=== PATIENT | male | born 1930 | race Caucasian/White ===

== ENCOUNTER → 2017-03-25 | Outpatient (CLI) | payer OTHER | PROVIDERS: ATTEND Internal Medicine Gastroenterology | DX: R13.12 Dysphagia, oropharyngeal phase (principal); K21.9 Gastro-esophageal reflux disease without esophagitis; R05 Cough | CPT/HCPCS: 74230; 92611; G8996; G8997; G8998 ==

== ENCOUNTER 2017-07-28 10:22 | Observation (INO) | payer OTHER ==
--- NOTE | 2017-07-28 10:44 | EDPHY ---
H & P Stated Complaint: c/o Rt foot swelling with 2 small blisters -Pt has cough/ congestion Time Seen by Provider: 07/28/17 10:30 HPI/ROS: CHIEF COMPLAINT: Right leg edema HISTORY OF PRESENT ILLNESS: The patient is an 85-year-old man who is a poor historian but according to the medical record has a history of hypertension, chronic bronchitis, pulmonary emboli, DVT, traumatic subarachnoid hemorrhage, valvular heart disease with valve insufficiency, chronic back pain and anemia comes to the emergency department brought by his nephew complaining of bilateral lower extremity edema right greater than left. His at home states that he has had edema in both legs for about a month. He has a small blister to his right dorsal foot and another 1 that is broken to his right lateral foot. No erythema or pain. Patient states he does not now high got them. According to his his right leg was twice is big last night that it is this morning. He has Not had a fever. He has a chronic cough that he states is from chronic congestion. He states that it is not worse than usual. He denies shortness of breath. He denies chest pain REVIEW OF SYSTEMS: Constitutional: denies: chills, fever, recent illness, recent injury EENTM: denies: blurred vision, double vision, nose congestion Respiratory: See HPI denies: shortness of breath Cardiac: denies: chest pain, irregular heart rate, lightheadedness, palpitations Gastrointestinal/Abdominal: denies: abdominal pain, diarrhea, nausea, vomiting, blood streaked stools Genitourinary: denies: dysuria, frequency, hematuria, pain Musculoskeletal: denies: joint pain, muscle pain Skin: See HPI Neurological: denies: headache, numbness, paresthesia, tingling, dizziness, weakness Hematologic/Lymphatic: denies: blood clots, easy bleeding, easy bruising Immunologic/allergic: denies: HIV/AIDS, transplant EXAM: GENERAL: Well-appearing, well-nourished and in no acute distress. HEAD: Atraumatic, normocephalic. EYES: Pupils equal round and reactive to light, extraocular movements intact, sclera anicteric, conjunctiva are normal. ENT: TMs normal, runny nose, oropharynx clear without exudates. Moist mucous membranes. NECK: Normal range of motion, supple without lymphadenopathy or JVD. LUNGS: Upper respiratory rhonchi, no crackles HEART: Regular rate and rhythm without murmurs, rubs or gallops. ABDOMEN: Soft, nontender, normoactive bowel sounds. No guarding, no rebound. No masses appreciated. BACK: No CVA tenderness, no spinal tenderness, step-offs or deformities EXTREMITIES: 2+ pitting edema both legs right greater than left, NEUROLOGICAL: Cranial nerves II through XII grossly intact. Normal speech, normal gait. 5/5 strength, normal movement in all extremities, normal sensation PSYCH: Normal mood, normal affect. SKIN: Small blister on broken to right dorsal foot. Small broken blister to the lateral aspect of the right foot. Minimal bout of blood present. No sign of erythema or warmth. Source: Patient Exam Limitations: No limitations - Personal History Current Tetanus Diphtheria and Acellular Pertussis (TDAP): Unsure - Medical/Surgical History Hx Asthma: No Hx Chronic Respiratory Disease: No Hx Diabetes: No Hx Cardiac Disease: No Hx Renal Disease: No Hx Cirrhosis: No Hx Alcoholism: No Hx HIV/AIDS: No Hx Splenectomy or Spleen Trauma: No Other PMH: Hypertension, chronic bronchitis, PE, DVT, traumatic subarachnoid, valvular heart disease, chronic back pain, bilateral cataract surgery, appendectomy, chronic anemia, chronic dysphagia post stricture dilation, GERD, and epistaxis, arthritis, gout - Family History Significant Family History: No pertinent family hx - Social History Smoking Status: Never smoked Alcohol Use: Sober Drug Use: None Constitutional: Initial Vital Signs Temperature (C) 36.6 C 07/28/17 10:38 Heart Rate 84 07/28/17 10:38 Respiratory Rate 18 07/28/17 10:38 Blood Pressure 134/62 H 07/28/17 10:38 O2 Sat (%) 92 07/28/17 10:38 O2 Delivery Mode Room Air Allergies/Adverse Reactions: ampicillin [Ampicillin] Allergy (Intermediate, Verified 11/26/15 11:12) Penicillins Allergy (Intermediate, Verified 11/26/15 11:12) Home Medications: Medication Instructions Recorded Warfarin Sodium [Coumadin] 5 mg PO DAILY16 03/17/11 CENTRUM SILVER TABLET 04/13/11 Vitamin B-12 04/13/11 Citalopram 10/04/15 Nadolol 10/04/15 Medical Decision Making - Diagnostics EKG Interpretation: An EKG obtained and was read and documented in trace view. Please see trace view for full reading and report. Wandering pacemaker, LVH with repolarization abnormality Imaging Results: Imaging Impressions Extremity Venous Study 07/28/17 10:41 Impression: 1. Small volume bilateral deep venous thrombosis involving the peroneal veins. No deep venous thrombosis within the popliteal or femoral veins. 2. Age indeterminate thrombophlebitis involving the right greater saphenous vein in the calf. Findings discussed with Emergency Department physician, Mehran Rivera at 2016 12:30. Imaging: Discussed imaging studies w/ call center recruiter Radiologist ED Course/Re-evaluation: 11:40 a.m. we discussed test results thus far. Patient and family are agreeable to admission. I will start him on Lasix small dose. He is not you have to Lasix. INR is pending. I discussed the case with Laverne who accepted for Dr. Collazo. Radiology reports that there are multiple chronic appearing DVTs in bilateral legs but I small acute DVT in his right popliteal region. I will start the patient on Lovenox prior to transfer. Differential Diagnosis: Partial list of the Differential diagnosis considered include but were not limited to; CHF, valvular heart disease, DVT, cellulitis and although unlikely based on the history and physical exam, I also considered thrombosis, fracture, pneumonia. I discussed these differential diagnoses and the plan with the patient as well as the usual and expected course. The patient understands that the diagnosis is provisional and that in medicine we are not always correct and that further workup is often warranted. Usual and customary warnings were given. All of the patient's questions were answered. The patient was instructed to return to the emergency department should the symptoms at all worsen or return, otherwise to followup with the physician as we discussed. - Data Points Laboratory Results: Laboratory Results 07/28/17 10:49 07/28/17 10:49 07/28/17 07/28/17 07/28/17 10:49 10:49 10:49 WBC 8.07 10^3/uL 10^3/uL (3.80-9.50) RBC 3.56 10^6/uL L 10^6/uL (4.40-6.38) Hgb 11.2 g/dL L g/dL (13.7-17.5) Hct 33.9 % L % (40.0-51.0) MCV 95.2 fL fL (81.5-99.8) MCH 31.5 pg pg (27.9-34.1) MCHC 33.0 g/dL g/dL (32.4-36.7) RDW 13.9 % % (11.5-15.2) Plt Count 152 10^3/uL 10^3/uL (150-400) MPV 10.0 fL fL (8.7-11.7) Neut % (Auto) 56.3 % % (39.3-74.2) Lymph % (Auto) 36.6 % % (15.0-45.0) Vance % (Auto) 5.3 % % (4.5-13.0) Eos % (Auto) 1.0 % % (0.6-7.6) Baso % (Auto) 0.4 % % (0.3-1.7) Nucleat RBC Rel Count 0.0 % % (0.0-0.2) Absolute Neuts (auto) 4.55 10^3/uL 10^3/uL (1.70-6.50) Absolute Lymphs (auto) 2.95 10^3/uL 10^3/uL (1.00-3.00) Absolute Monos (auto) 0.43 10^3/uL 10^3/uL (0.30-0.80) Absolute Eos (auto) 0.08 10^3/uL 10^3/uL (0.03-0.40) Absolute Basos (auto) 0.03 10^3/uL 10^3/uL (0.02-0.10) Absolute Nucleated RBC 0.00 10^3/uL 10^3/uL (0-0.01) Immature Gran % 0.4 % % (0.0-1.1) Immature Gran # 0.03 10^3/uL 10^3/uL (0.00-0.10) PT 25.4 SEC H SEC (12.0-15.0) INR 2.33 H (0.83-1.16) APTT 39.8 SEC H SEC (23.0-38.0) Sodium 140 mEq/L mEq/L (134-144) Potassium 4.2 mEq/L mEq/L (3.5-5.2) Chloride 104 mEq/L mEq/L (97-110) Carbon Dioxide 28 mEq/l mEq/l (22-31) Anion Gap 8 mEq/L mEq/L (8-16) BUN 18 mg/dL mg/dL (7-23) Creatinine 0.9 mg/dL mg/dL (0.7-1.3) Estimated GFR > 60 Glucose 102 mg/dL H mg/dL (70-100) Calcium 8.8 mg/dL mg/dL (8.5-10.4) Total Bilirubin 0.9 mg/dL mg/dL (0.1-1.4) Conjugated Bilirubin 0.4 mg/dL mg/dL (0.0-0.5) Unconjugated Bilirubin 0.5 mg/dL mg/dL (0.0-1.1) AST 38 IU/L IU/L (17-59) ALT 48 IU/L IU/L (21-72) Alkaline Phosphatase 93 IU/L IU/L (38-126) Troponin I < 0.012 ng/mL ng/mL (0.000-0.034) NT-Pro-B Natriuret Pep 4460 pg/mL H pg/mL (0-450) Total Protein 6.9 g/dL g/dL (6.3-8.2) Albumin 2.9 g/dL L g/dL (3.5-5.0) Lipase 194 IU/L IU/L (23-300) Medications Given: Enoxaparin Sodium (Lovenox) 80 mg SC BID MELINA Stop: 01/24/18 12:29 Last Admin: 07/28/17 12:49 Dose: 80 mg Discontinued Medications Furosemide (Lasix Injection) 20 mg IVP EDNOW ONE Stop: 07/28/17 11:40 Last Admin: 07/28/17 12:01 Dose: 20 mg Departure - Departure Disposition: [facility] Clinical Impression: Bilateral edema of lower extremity CHF (congestive heart failure) Qualifiers: Congestive heart failure type: unspecified congestive heart failure type Congestive heart failure chronicity: unspecified congestive heart failure chronicity Qualified Code(s): I50.9 - Heart failure, unspecified Condition: Fair
[2017-07-28 10:59] LABS: % IMMATURE GRANULYOCYTES 0.4 % (0.0-1.1); ABSOLUTE IMMATURE GRANULOCYTES 0.03 10^3/uL (0.00-0.10); ADD DIFF? NO; ADD MORPH? NO; ADD SCAN? NO; ATYPICAL LYMPHOCYTE FLAG 10 (0-99); FRAGMENT RBC FLAG 0 (0-99); HEMATOCRIT 33.9 % (40.0-51.0); HEMOGLOBIN 11.2 g/dL (13.7-17.5); LEFT SHIFT FLG 0 (0-99); LIPEMIA HEMOLYSIS FLAG 80 (0-99); MEAN CELL HEMOGLOBIN 31.5 pg (27.9-34.1); MEAN CELL VOLUME 95.2 fL (81.5-99.8); PLATELET CLUMPS FLAG 0 (0-99); PLATELET COUNT 152 10^3/uL (150-400); RED BLOOD CELL COUNT 3.56 10^6/uL (4.40-6.38); RED CELL DISTRIBUTION WIDTH 13.9 % (11.5-15.2)
--- NOTE | 2017-07-28 11:02 | CPEKG ---
Heart Rate: 65 RR Interval: 923 P-R Interval: 187 QRSD Interval: 128 QT Interval: 488 QTC Interval: 508 P Middleton: 0 QRS Middleton: -65 T Wave Middleton: 19 EKG Severity - ABNORMAL ECG - EKG Impression: WANDERING PACEMAKER EKG Impression: PAIRED VENTRICULAR PREMATURE COMPLEXES EKG Impression: RBBB AND LAFB EKG Impression: CONSIDER ANTEROSEPTAL INFARCT Electronically Signed By: Mehran Rivera 28-Jul-2017 11:25:36
[2017-07-28 11:18] LABS: ALANINE AMINOTRANSFERASE 48 IU/L (21-72); ALBUMIN 2.9 g/dL (3.5-5.0); ALKALINE PHOSPHATASE 93 IU/L (38-126); ANION GAP 8 mEq/L (8-16); ASPARTATE AMINOTRANSFERASE 38 IU/L (17-59); BILIRUBIN,TOTAL 0.9 mg/dL (0.1-1.4); BILIRUBIN-CONJUGATED 0.4 mg/dL (0.0-0.5); BILIRUBIN-UNCONJUGATED 0.5 mg/dL (0.0-1.1); CALCIUM 8.8 mg/dL (8.5-10.4); CARBON DIOXIDE 28 mEq/l (22-31); CHLORIDE 104 mEq/L (97-110); CREATININE 0.9 mg/dL (0.7-1.3); GLOMERULAR FILTRATION RATE > 60; GLUCOSE 102 mg/dL (70-100); POTASSIUM 4.2 mEq/L (3.5-5.2); SODIUM 140 mEq/L (134-144); TOTAL PROTEIN 6.9 g/dL (6.3-8.2)
[2017-07-28 11:28] LABS: TROPONIN I < 0.012 ng/mL (0.000-0.034)
[2017-07-28] MEDS ORDERED: FUROSEMIDE 20 MG/2 ML VIAL IVP ONE (11:39)
[2017-07-28 12:05] LABS: INR 2.33 (0.83-1.16); PROTIME(PATIENT) 25.4 SEC (12.0-15.0)
[2017-07-28 12:06] LABS: APTT 39.8 SEC (23.0-38.0)
[2017-07-28] MEDS ORDERED: ENOXAPARIN 80 MG/0.8 ML SYR SC ONE ×2 (12:25→14:00)
[2017-07-28] MEDS ORDERED: ENOXAPARIN 80 MG/0.8 ML SYR SC SCH ×2 (12:30→21:00)
[2017-07-28] MEDS ORDERED: ONDANSETRON DISINTEGRATING 4 MG TAB PO PRN (13:47)
[2017-07-28] MEDS ORDERED: ACETAMINOPHEN 325 MG TAB PO PRN (13:47)
[2017-07-28] MEDS ORDERED: ONDANSETRON 4 MG/2 ML VIAL IVP PRN (13:47)
[2017-07-28] MEDS ORDERED: ECONAZOLE 1% CREAM TP PRN (14:33)
--- NOTE | 2017-07-28 15:00 | WOCRNPDOC ---
WOCRN Advanced Assessment Note - Skin Integrity Problem, Advanced Assess Coccyx Pressure Injury Dressing Type: Open to Air, Other Other Dressing Type: briefs Exudate Amount: None Kiana Wound Tissue: Erythema, Non-blanching Wound Bed Color: Red Site Measurement - Head-to-Toe Length X Width X Depth (cm): 4.2x3.2x0 Pressure Injury Stage: Stage 1 Pressure Injury Present on Admit: Yes Skin Integrity Problem Comment: Patient rolled to his right side and briefs lowered to view the area. Skin over coccyx is dark red and non-blanching. Skin on the upper gluteal cleft also with redness but this area is blanching. With permission, I removed the patient's briefs and recommend that he remain brief free while in bed. This wound is consistent with a Stage 1 pressure injury, present on admission. Patient and family educated about how pressure injuries develop and what measures can be taken to help prevent them. All questions answered. Wound care will not follow this wound. Please reconsult PRN if wound opens.
--- NOTE | 2017-07-28 15:16 | GHP ---
[f rep st] HISTORY AND PHYSICAL DATE OF ADMISSION: 07/28/2017 CHIEF COMPLAINT: Lower extremity swelling. HISTORY OF PRESENT ILLNESS: An 86-year-old male with history of DVT in 2008 and pulmonary embolism, hypertension, depression, anemia, brought in by and daughter due to swelling, specifically in the right leg, as well as sores on his foot. The swelling in the legs started approximately on Friday, noted more on the right side. Has intermittent swelling of the ankles. He denies any chest pain, shortness of breath, nausea, vomiting, diarrhea. No fevers. Uses a walker but has had 6 falls in the last year, per family. REVIEW OF SYSTEMS: I completed a 10-point review of systems, negative except as noted in HPI. PAST MEDICAL HISTORY: 1. DVT, 2008. 2. Pulmonary embolism. 3. Hypertension. 4. Bronchitis. 5. Depression. 6. MGUS. 7. Chronic back pain. 8. GERD. 9. History of temporal SAH. 10. Anemia. 11. Esophageal stricture, status post dilation. PAST SURGICAL HISTORY: Cataract, appendectomy. 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 Lives with his in [place]. Has been 66 years. Smoked a pack a day for 30 years, quit 30 years ago. FAMILY HISTORY: His father of a CVA. Mother of stomach cancer. HOME MEDICATIONS: 1. Nadolol 160 mg daily. 2. Omeprazole 40 mg daily. 3. Multivitamin. 4. Miconazole cream. 5. Celexa 20 mg daily. 6. Coumadin 5 mg. ALLERGIES: Ampicillin, penicillin. PHYSICAL EXAMINATION: VITAL SIGNS: Temperature 36.6, blood pressure 134/60, heart rate 80s, respirations 18. 98% on room air. GENERAL: Well appearing, sitting up in bed. No acute distress. HEENT: PERRLA. EOMI. Oropharynx clear. CV: Regular rate, rhythm. No murmurs, gallops, or rubs. +2 ankle edema on the left, +2 up to the knee on the right. No overlying erythema. : No suprapubic tenderness. MUSCULOSKELETAL: Moving all 4 extremities. SKIN: 2 wounds on the right foot. No surrounding cellulitis. NEURO: 2 through 12 intact. PSYCH: Alert and oriented x3. LABS: WBC is 8, hemoglobin 11, hematocrit 33, platelets 152. INR is 2.2. Sodium 140, potassium 4.2, chloride 104, anion gap 8, creatinine 0.9, glucose 102. LFTs within normal. Troponin less than 0.012. BNP 4460. Albumin 2.9, lipase 194. EKG personally reviewed by me: Right bundle branch block. Chest x-ray personally reviewed: 1. Blunting of the left costophrenic angle. 2. Right upper lobe nodule. ASSESSMENT AND PLAN: 1. Lower extremity edema: Suspect on the right, secondary to blood clots. It is unclear the chronicity of these. Reviewed with Dr. Issa, difficult to discern, but peroneal fullness likely represents new clot. I reviewed records and INR <2 several times this years, so cannot consider coumadin failure, but given fluctuating INR, Eliquis may be better agent. Family to decide this evening. Place on Lovenox BID for now. time. BNP is elevated, TTE pending. 2. Depression: Celexa. 3. Pulmonary nodule: This is new on x-ray. I reviewed this with family and they do not want to pursue any further. 4. Gastroesophageal reflux disease: Proton pump inhibitor. 5. Hypertension: Continue nadolol. 6. Diet: Low-sodium. 7. Deep venous thrombosis prophylaxis: On Lovenox. 8. Disposition: The patient warrants observation admission, given lower extremity edema requiring an echocardiogram, telemetry. 9. Code status: I d/w patient and family and agree with DNR. /[id number]/MODL Time spent on admission: 75 min reviewing records, d/w with Dr. Issa and anticoagulation options with family MTDD
--- NOTE | 2017-07-28 16:31 | ECHO ---
[email or web address] [address] Main: [phone] Fax: Transthoracic Echocardiogram Name: CATARINO STRICKLAND MR#: [id number] Study Date: 07/28/2017 Study Time: 02:52 PM Date of : 1930 Age: 86 year(s) Height: 175.3 cm (69 in.) Weight: 56.25 kg (124 lb.) BSA: 1.69 m2 Gender: Male Examination: Echo Indication: Lower extremity edema, Murmur, Pectus Carinatum Image Quality: Contrast: Requested by: Ambreen Collazo BP: 118 mmHg/53 mmHg Heart Rate: Rhythm: Normal sinus rhythm Indication: Lower extremity edema, Murmur, Pectus Carinatum Procedure Staff Plating Stripper: Cem Avilez Reading Physician: Hugo Herndon Requesting Provider: Conclusions: Low normal left ventricular systolic function. EF is 56 %. Severe calcific aortic valve stenosis. The Ao Vmax 4.1 m/s with a Ao mean Pg of 40 mmHg. The dimentionless index is .12 Technically difficult exam with limited windows due to pectus carinatum. Severe . There is no previous echocardiogram for comparison. Measurements: Chambers Valvular Assessment AV/MV Valvular Assessment TV/PV Normal Normal Normal Name Value Range Name Value Range Name Value Range Ao Letha (MM): 1.6 cm (2.2 cm-3.7 AV Vmax: 4.17 m/s (1 m/s-1.7 cm) m/s) IVSd (2D): 1.0 cm (0.6 cm-1.1 AV maxP mmHg ( - ) cm) AV meanP mmHg ( - ) LVDd (2D): 4.1 cm (4.2 cm-5.9 IRENE (VTI): 0.4 cm ( - ) cm) MV E Vmax: 0.82 m/s ( - ) LVDs (2D): 2.9 cm (2.1 cm-4 MV A Vmax: 0.59 m/s ( - ) cm) MV E/A: 1.39 ( - ) LVPWd (2D): 1.2 cm (0.6 cm-1 cm) MV meanP mmHg ( - ) LVOTd 1.9 cm 1.9 cm mm MVA (Vmax): 1.1 m/s ( - ) LVEF (2D): 56 (>=54 %) Continued Measurements: Chambers Valvular Assessment AV/MV Name Value Name Value LADs Lon.6 cm MV E' Septal: 0.04 m/s Patient: CATARINO STRICKLAND Study Date: 07/28/2017 Page 1 of 2 02:52 PM LA Area: 20.4 cm2 MV E/E' Septal: 23.30 MV E/E' Lateral: 15.30 MV VTI: 38.90 cm Findings: Left Ventricle: Normal size left ventricle. Low normal left ventricular systolic function. EF is 56 %. No regional wall motion abnormality. Diastolic dysfunction is present. . Right Ventricle: Normal size right ventricle. Normal RV function. Left Atrium: The left atrium is mildly dilated. Right Atrium: The right atrium is normal in size. Mitral Valve: Mild mitral valve leaflet calcification is present. No mitral stenosis is present. Aortic Valve: Severe aortic valve calcification is present. Severe calcific aortic valve stenosis. The Ao Vmax 4.1 m/s with a Ao mean Pg of 40 mmHg. The dimentionless index is .12 Tricuspid Valve: Tricuspid valve not well visualized. Pulmonic Valve: Pulmonary valve not well visualized. Aorta: The aorta is normal. Pericardium: No pericardial effusion. Exam Comments: Technically difficult exam with limited windows due to pectus carinatum. Severe . (No Signature Object) Patient: CATARINO STRICKLAND Study Date: 07/28/2017 Page 2 of 2 02:52 PM [id number]
[2017-07-28 19:12] LABS: COLOR YELLOW; LEUKOCYTE ESTERASE,URINE NEGATIVE (NEGATIVE); NITRITE,URINE NEGATIVE (NEGATIVE)
[2017-07-28] MEDS ORDERED: ENOXAPARIN 60 MG/0.6 ML SYR SC SCH (21:00)
[2017-07-29 04:54] VITALS: RESP 16
[2017-07-29 05:17] LABS: HEMOGLOBIN 10.4 g/dL (13.7-17.5); MEAN CELL HEMOGLOBIN 31.7 pg (27.9-34.1); MEAN CELL HEMOGLOBIN CONCENTR. 33.5 g/dL (32.4-36.7); MEAN CELL VOLUME 94.5 fL (81.5-99.8); RED BLOOD CELL COUNT 3.28 10^6/uL (4.40-6.38); RED CELL DISTRIBUTION WIDTH 13.7 % (11.5-15.2)
[2017-07-29 05:22] LABS: INR 2.78 (0.83-1.16); PROTIME(PATIENT) 29.7 SEC (12.0-15.0)
[2017-07-29 05:26] LABS: ANION GAP 7 mEq/L (8-16); CALCIUM 8.2 mg/dL (8.5-10.4); CARBON DIOXIDE 26 mEq/l (22-31); CHLORIDE 105 mEq/L (97-110); CREATININE 0.8 mg/dL (0.7-1.3); GLOMERULAR FILTRATION RATE > 60; GLUCOSE 75 mg/dL (70-100); POTASSIUM 4.1 mEq/L (3.5-5.2); SODIUM 138 mEq/L (134-144)
--- NOTE | 2017-07-29 08:06 | HOSPPROG ---
Hospitalist Progress Note Assessment/Plan: #LE edema: R>L. Likely due to clot. No pain #h/o DVT/PE: INR variable at home. Family and patient opting for Eliquis. INR 2.7 today. Provided Rx for Eliquis and arranged home valentina RN to check daily INR and can start when INR less than 2 #Asymptomatic severe : patient and family don't want intervention. Mild edema here. Will hold BB since BP running low at home. Will have them see Cardiology outpatient #Other chronic medical issues: stable and resume home meds Time spent on dc: 60 min counseling family on medications, home care and d/w pharmacy Subjective: no chest pain or shortness of breath Objective: Vital Signs Temp Pulse Resp BP Pulse Ox 36.7 C 57 L 16 113/52 L 90 L 07/29/17 04:00 07/29/17 04:00 07/29/17 04:00 07/29/17 04:00 07/29/17 04:00 Laboratory Results 07/29/17 03:50 07/29/17 03:50 07/28/17 07/29/17 07/30/17 05:59 05:59 05:59 Intake Total 550 Output Total 300 Balance 250 PT 29.7 SEC (12.0-15.0) H 07/29/17 03:50 INR 2.78 (0.83-1.16) H 07/29/17 03:50 - Physical Exam Constitutional: no apparent distress Eyes: PERRL Ears, Nose, Mouth, Throat: moist mucous membranes, hearing normal Cardiovascular: regular rate and rhythym, no murmur, rub, or gallop, edema (+2 LE right, +1 left) Respiratory: no respiratory distress, no rales or rhonchi Gastrointestinal: normoactive bowel sounds Genitourinary: no bladder fullness Skin: warm Musculoskeletal: full muscle strength Neurologic: AAOx3, CN II-XII Intact Psychiatric: interacting appropriately ICD10 Worksheet Patient Problems: Problems Problem Status Onset Bilateral edema of lower extremity Acute CHF (congestive heart failure) Acute
[2017-07-29] MEDS ORDERED: NADOLOL 20 MG TAB PO SCH (09:00)
[2017-07-29] MEDS ORDERED: NADOLOL PO SCH (09:00)
[2017-07-29] MEDS ORDERED: NON-FORMULARY NEW DRUG (Omeprazole [Omeprazole] 40 MG) PO SCH (09:00)
[2017-07-29] MEDS ORDERED: MULTIVITAMINS 1 EACH TAB PO SCH (09:00)
[2017-07-29] MEDS ORDERED: PANTOPRAZOLE SODIUM 40 MG TAB PO SCH (09:00)
[2017-07-29] MEDS ORDERED: CITALOPRAM 20 MG TAB PO SCH (09:00)
[2017-07-29] MEDS ORDERED: APIXABAN 5 MG TAB PO SCH (09:15)
--- NOTE | 2017-07-29 11:37 | PDIAF ---
- Diagnosis Diagnosis: DVT, aortic stenosis Code Status: Do Not Resuscitate - Medication Management Discharge Medications: Medications to Continue on Transfer Citalopram [CeleXA 20 MG] 20 mg PO DAILY 07/28/17 [Last Taken 07/28/17] Econazole 1% [Spectazole 1%] 1 obinna TP BID PRN 07/28/17 [Last Taken Unknown] Multivitamins [Multivitamin (*)] 1 each PO DAILY 07/28/17 [Last Taken 07/28/17] Omeprazole 40 mg PO DAILY 07/28/17 [Last Taken 07/28/17] Apixaban [Eliquis] 5 mg PO BID #60 tab 07/29/17 [Last Taken Unknown] Discharge Medications: Refer to the Discharge Home Medication list for PRN reason. - Orders Services needed: Registered Nurse Diet Recommendation: cardiac -low fat low salt - Labs/Radiology PT/INR Date: 07/31/17 (need daily INR checks. Once INR < 2, can start Eliquis) - Follow Up Care Current Providers and Referrals: Jadiel Harding MD [Medical Doctor] - follow up in 2 weeks (Aortic stenosis)
[2017-07-29 11:40] VITALS: BP 126/60; PULSE 56; TEMP 97.5; O2SAT 92
--- NOTE | 2017-07-29 12:26 | ASMTCMCOM ---
CM Note CM Note Notes: 07/29/2017 Case Managment Note Met w/ pt, and daughter Jerad. Arranged home supervisor for INR draws. Pt was previously with [facility]. Family requested [facility]. Faxed referral and called to confirm. Family to transport home. Date Signed: 07/29/2017 12:26 PM Electronically Signed By:Kaylan Moore RN
--- NOTE | 2017-07-29 12:27 | ASDISCHSUM ---
Discharge Information Plan Status:Home with Home Health Medically Cleared to Leave:07/28/2017 Discharge Date:07/29/2017 12:19 PM D/C Disposition:Home Health Service ADT D/C Disposition:Home, Routine, Self-Care Projected Discharge Date:07/29/2017 11:00 AM Transportation at D/C:Family Discharge Delay Reason: Follow-Up Date:07/29/2017 11:00 AM Discharge Slot: Final Diagnosis: Placement Information Referral Type:*Home Health Care Services Referral ID:[id number] Provider [facility] [address] [facility] [address] Address 2: City:[place] Selection Factors: State:[place] Patient Contact Information Contact Name:SCOTTPOOLRicky Relationship: Address:[address] Work Phone: [facility]:[place] Alternate Phone: State/Zip Code:[place] [address] Email: Financial Information Financial Class:Medicare Advantage Plans Primary Plan Desc:[facility] Primary Plan Number:[id number] Secondary Plan Desc: Secondary Plan Number: Assessment Information [facility] CM Progress Note CM Note CM Note Notes: 07/29/2017 Case Managment Note Met w/ pt, and daughter Jerad. Arranged home health manager for INR draws. Pt was previously with [facility]. Family requested [facility]. Faxed referral and called to confirm. Family to transport home. Date Signed: 07/29/2017 12:26 PM Electronically Signed By:Kaylan Moore RN Intervention Information Intervention Type:*Incorrect Registration Date of Service:07/28/2017 03:28 PM Patient Type:Observation Staff Member:ALVARO Alexander, Marley Hours: Discipline: Severity: Comment: Intervention Type:*DAWN-Signed Date of Service:07/29/2017 09:32 AM Patient Type:Observation Staff Member:Ne Harris Hours: Discipline: Severity: Comment:
--- NOTE | 2017-07-29 16:37 | GDS ---
[f rep st] DISCHARGE SUMMARY DISCHARGE DIAGNOSES: 1. Lower extremity swelling. 2. Deep vein thrombosis 2008. 3. Pulmonary embolism. 4. Questionable new right peroneal deep vein thrombosis. 5. Bronchitis. 6. Depression. 7. Monoclonal gammopathy of undetermined significance. 8. Chronic back pain. 9. Gastroesophageal reflux disease. 10. History of temporal FSH. 11. Anemia. 12. Esophageal stricture. 13. History of falls. 14. Severe aortic stenosis. HISTORY OF PRESENT ILLNESS: An 86-year-old male with history of DVT in 2008 and pulmonary embolism, hypertension, abdomen depression, brought in by and daughter due to swelling in his legs as well as some sores on his feet. The legs started swelling on Friday. They noted that it was more on the right than left. He denies any pain in the legs. No chest pain or shortness of breath. No dizziness or lightheadedness. No syncopal episodes. No fevers. HOSPITAL COURSE BY PROBLEM: 1. Lower extremity edema: due to the peroneal clots, mild volume overload. Reviewed imaging with Dr. Issa who stated it was difficult to discern, but there was fullness in the vein, so could represent new clot. He is currently on Coumadin, but I would not consider this a failure, as I reviewed INRs in the past that have been subtherapeutic. Per family, is very difficult to keep it at the goal of 2. I had a lengthy discussion with patient's daughter and , and they have chosen Eliquis for better control. His INR is currently 2.7, thus cannot start until this is less than 2. I have arranged for home health nurse to check his INR daily and he may start this once less than 2. Will start Eliquis at 5 mg b.i.d. Since clots are in the distal peroneal veins, it is reasonable to not consider these needing acute clot treatment dose. Will treat only with 5 mg b.i.d. with fall risk. This was discussed with family, and they are in agreement. 2. Echocardiogram showed low LV function, EF of 56%. There is severe calcific aortic valve stenosis with an AOV max of 4.1 m/s, with an AO mean gradient of 40 mmHg. This is considered severe . There was no prior with which to compare. Patient denies since syncope, presyncope, chest pain, and shortness of breath. He did have mild edema on exam, minimal pulmonary edema. He was dosed with Lasix once in the emergency room. Given age and not requiring oxygen , I will not send home on a diuretic. He is currently on nadolol for blood pressure control; however, family states his blood pressures range anywhere from systolic 90s to 110s. I would rather see him run a little on the high side with the severe , so we will stop this medication. Will arrange for him to follow up with Cardiology to discuss treatment options. At this time, patient's family would not like any intervention. 3. Right foot wounds, secondary to swelling: No evidence of infection. Wound care evaluated. 4. Other chronic issues: Patient may resume his home medications. DISPOSITION: Patient is stable for discharge home with his and daughter. NEW MEDICATIONS: Eliquis 5 mg twice daily to start when INR is less than 2. FOLLOWUP: 1. Make appointment with Cardiology to discuss aortic stenosis. 2. INR via home health nurse. 3. Followup with PCP. Time spent on DC. 50 min coordinating anticoagulation, counseling family on anticoagulation and coordinating home care. /[id number]/MODL MTDD
== END 2017-07-29 12:19 | disposition home or self-care (01) ==
LOC: CED 10:22 → CEDHOLD 11:44 → F2W 13:30
PROVIDERS: ADMIT Internal Medicine; ATTEND Internal Medicine
DX: R60.0 Localized edema (principal); I26.99 Other pulmonary embolism without acute cor pulmonale; J40 Bronchitis, not specified as acute or chronic; D47.2 Monoclonal gammopathy; M54.9 Dorsalgia, unspecified; K21.9 Gastro-esophageal reflux disease without esophagitis; D64.9 Anemia, unspecified; K22.2 Esophageal obstruction; Q25.1 Coarctation of aorta; Z91.81 History of falling; Z86.718 Personal history of other venous thrombosis and embolism; Z95.0 Presence of cardiac pacemaker
CPT/HCPCS: 71010; 93005; 93306; 93970; 97161; G0378; G8978; G8979; G8980; J1650; J1940; 80048-PO; 80076-PO; 83690-PO; 83880-PO; 84484-PO; 85025-PO; 85610-PO; 85730-PO; 96374

== ENCOUNTER → 2017-09-29 | Outpatient (CLI) | payer OTHER | PROVIDERS: ATTEND Internal Medicine | DX: R13.13 Dysphagia, pharyngeal phase (principal); K21.9 Gastro-esophageal reflux disease without esophagitis | CPT/HCPCS: 74230; 92611; G8996; G8997; G8998 ==

== ENCOUNTER 2017-12-04 19:21 | Inpatient (IN) | payer OTHER ==
--- NOTE | 2017-12-04 19:51 | EDPHY ---
H & P Stated Complaint: Fever after dinner at 1700hrs, as aspiration issues. Time Seen by Provider: 12/04/17 19:36 HPI/ROS: Chief Complaint: Fever HPI: 87-year-old male with a history of a swallowing dysmotility disorder had a fever of 101.3 at home. Patient has a history of aspiration in family is concerned he may have aspirated. Patient had a small choking episode at dinner about 2.5 hr ago. Has a chronic mild cough, usually associated with eating. No shortness of breath. No nausea or vomiting. No urinary urgency or frequency. No chest pain. No abdominal pain.. No skin rashes. No headache. Otherwise has been in his usual state health. ROS: 10 point Review of Systems is negative except as noted in the HPI. Social History: No smoking, no alcohol, no recreational drug use Family History: non-contributory Physical Exam: Gen: Awake, Alert, No Distress HEENT: Nose: no rhinorrhea Eyes: PERRLA, EOMI Mouth: Moist mucosa Neck: Supple, no JVD Chest: nontender, lungs clear to auscultation Heart: S1, S2 normal, 4/6 blowing systolic murmur Abd: Soft, non-tender, no guarding Back: no CVA tenderness, no midline tenderness Ext: no edema, non-tender Skin: no rash Neuro: CN II-XII intact, Sensation grossly intact, Strength 5/5 in bilateral upper and lower extremities - Personal History Current Tetanus/Diphtheria Vaccine: Unsure Current Tetanus Diphtheria and Acellular Pertussis (TDAP): Unsure - Medical/Surgical History Hx Asthma: No Hx Chronic Respiratory Disease: Yes Hx Diabetes: No Hx Cardiac Disease: Yes Hx Renal Disease: No Hx Cirrhosis: No Hx Alcoholism: No Hx HIV/AIDS: No Hx Splenectomy or Spleen Trauma: No Other PMH: Hypertension, chronic bronchitis, PE, DVT, traumatic subarachnoid, valvular heart disease, chronic back pain, bilateral cataract surgery, appendectomy, chronic anemia, chronic dysphagia post stricture dilation, GERD, and epistaxis, arthritis, gout. - Social History Smoking Status: Never smoked Constitutional: Initial Vital Signs Temperature (C) 37.7 C 12/04/17 19:37 Heart Rate 108 H 12/04/17 19:37 Respiratory Rate 16 12/04/17 19:37 Blood Pressure 136/89 H 12/04/17 19:37 O2 Sat (%) 91 L 12/04/17 19:37 O2 Delivery Mode Room Air Allergies/Adverse Reactions: ampicillin [Ampicillin] Allergy (Intermediate, Verified 11/26/15 11:12) Penicillins Allergy (Intermediate, Verified 11/26/15 11:12) Home Medications: Medication Instructions Recorded Citalopram [CeleXA 20 MG] 20 mg PO DAILY 07/28/17 Econazole 1% [Spectazole 1%] 1 obinna TP BID PRN 07/28/17 Multivitamins [Multivitamin (*)] 1 each PO DAILY 07/28/17 Omeprazole 40 mg PO DAILY 07/28/17 Apixaban [Eliquis] 5 mg PO BID #60 tab 07/29/17 Medical Decision Making - Diagnostics Imaging Results: Imaging Impressions Chest X-Ray 12/04/17 19:45 Impression: 1. Patchy right lower lobe pneumonia 2. New since 2008 and moderate T7 and T8 compressions. This patient might benefit from a DEXA scan. ED Course/Re-evaluation: Chest x-ray shows a patchy right lower lobe infiltrate. Patient is tachycardic. Awaiting CBC results. Patient will likely require admission given his comorbidities and likely aspiration pneumonia. CBC is normal. Patient mildly tachycardic amount of hypoxemic. Clindamycin has been ordered as the patient is penicillin allergic. Will be admitted to Dr. Chahal for IV antibiotics and observation overnight. - Data Points Laboratory Results: Laboratory Results 12/04/17 20:20 12/04/17 20:20 12/04/17 12/04/17 12/04/17 20:20 20:20 20:20 WBC 7.38 10^3/uL 10^3/uL (3.80-9.50) RBC 3.42 10^6/uL L 10^6/uL (4.40-6.38) Hgb 10.9 g/dL L g/dL (13.7-17.5) Hct 33.1 % L % (40.0-51.0) MCV 96.8 fL fL (81.5-99.8) MCH 31.9 pg pg (27.9-34.1) MCHC 32.9 g/dL g/dL (32.4-36.7) RDW 13.1 % % (11.5-15.2) Plt Count 144 10^3/uL L 10^3/uL (150-400) MPV 10.4 fL fL (8.7-11.7) Neut % (Auto) 81.4 % H % (39.3-74.2) Lymph % (Auto) 13.3 % L % (15.0-45.0) Louisa % (Auto) 4.2 % L % (4.5-13.0) Eos % (Auto) 0.5 % L % (0.6-7.6) Baso % (Auto) 0.3 % % (0.3-1.7) Nucleat RBC Rel Count 0.0 % % (0.0-0.2) Absolute Neuts (auto) 6.01 10^3/uL 10^3/uL (1.70-6.50) Absolute Lymphs (auto) 0.98 10^3/uL L 10^3/uL (1.00-3.00) Absolute Monos (auto) 0.31 10^3/uL 10^3/uL (0.30-0.80) Absolute Eos (auto) 0.04 10^3/uL 10^3/uL (0.03-0.40) Absolute Basos (auto) 0.02 10^3/uL 10^3/uL (0.02-0.10) Absolute Nucleated RBC 0.00 10^3/uL 10^3/uL (0-0.01) Immature Gran % 0.3 % % (0.0-1.1) Immature Gran # 0.02 10^3/uL 10^3/uL (0.00-0.10) VBG Lactic Acid 1.8 mmol/L mmol/L (0.7-2.1) Sodium 136 mEq/L mEq/L (135-145) Potassium 4.3 mEq/L mEq/L (3.5-5.2) Chloride 100 mEq/L mEq/L (97-110) Carbon Dioxide 27 mEq/l mEq/l (22-31) Anion Gap 9 mEq/L mEq/L (8-16) BUN 23 mg/dL mg/dL (7-23) Creatinine 1.0 mg/dL mg/dL (0.7-1.3) Estimated GFR > 60 Glucose 122 mg/dL H mg/dL (70-100) Calcium 8.8 mg/dL mg/dL (8.5-10.4) Influenza A,B Rapid 12/04/17 20:10 WBC RBC Hgb Hct MCV MCH MCHC RDW Plt Count MPV Neut % (Auto) Lymph % (Auto) Louis[place] % (Auto) Eos % (Auto) Baso % (Auto) Nucleat RBC Rel Count Absolute Neuts (auto) Absolute Lymphs (auto) Absolute Monos (auto) Absolute Eos (auto) Absolute Basos (auto) Absolute Nucleated RBC Immature Gran % Immature Gran # VBG Lactic Acid Sodium Potassium Chloride Carbon Dioxide Anion Gap BUN Creatinine Estimated GFR Glucose Calcium Influenza A,B Rapid NEGATIVE FOR FLU (NEGATIVE) Departure - Departure Disposition: [facility] Inpatient Acute Clinical Impression: Aspiration pneumonia Condition: Fair Referrals: Chris Villarreal MD [Primary Care Provider] - As per Instructions
[2017-12-04 20:38] LABS: PLATELET COUNT 144 10^3/uL (150-400)
[2017-12-04] MEDS ORDERED: ACETAMINOPHEN 500 MG TAB PO ONE (20:54)
[2017-12-04] MEDS ORDERED: CLINDAMYCIN 600 MG/DEXTROSE 50 ML IV ONE (20:59)
[2017-12-04] MEDS ORDERED: ACETAMINOPHEN 160 MG/5 ML UDCUP PO ONE (21:10)
[2017-12-04] MEDS ORDERED: ONDANSETRON 4 MG/2 ML VIAL IVP PRN (22:29)
[2017-12-04] MEDS ORDERED: ACETAMINOPHEN 325 MG TAB PO PRN (22:29)
[2017-12-04] MEDS ORDERED: NS 1,000 ML IV SCH (22:30)
--- NOTE | 2017-12-05 03:04 | PDGENHP ---
History and Physical - Chief Complaint fever, cough - History of Present Illness Source-patient able to provide majority of the history he is a fair historian. EMR was reviewed and case discussed with ED provider. I briefly talked with patient's daughter on the phone to update regarding plan. HPI - this is a pleasant 87-year-old gentleman with past medical history significant for longstanding esophageal dysmotility issues and dysphagia with previous history of aspiration pneumonia, hypertension, history PE and DVT on chronic anticoagulation with Eliquis who presents emergency department this afternoon after having a choking episode with dinner and developed mid of fever. Patient with a history of esophageal strictures status post dilation and a subsequent had persistent dysmotility with known risk of aspiration. Patient reports that he complies with his recommended diet of no liquids with meals and chin tucking however he did subsequently have a choking episode and since that time a nonproductive cough. Patient reports his fever home was 101.3F prompting him to be evaluated in the emergency department. Patient otherwise denies any chills or sweats. He has no nausea or vomiting. Patient denies any sore throat or congestion. He denies any dyspnea. Patient presented to [facility], where he he was noted to be afebrile and saturating well on room air. Chest x-ray was significant for evidence of right lower lobe pneumonia consistent with his reported aspiration. History Information - Allergies/Home Medication List Allergies/Adverse Reactions: ampicillin [Ampicillin] Allergy (Intermediate, Verified 11/26/15 11:12) Penicillins Allergy (Intermediate, Verified 11/26/15 11:12) Home Medications: Citalopram [CeleXA 20 MG] 20 mg PO DAILY 07/28/17 [Last Taken 07/28/17] Econazole 1% [Spectazole 1%] 1 obinna TP BID PRN 07/28/17 [Last Taken Unknown] Multivitamins [Multivitamin (*)] 1 each PO DAILY 07/28/17 [Last Taken 07/28/17] Omeprazole 40 mg PO DAILY 07/28/17 [Last Taken 07/28/17] I have personally reviewed and updated: family history, medical history, social history, surgical history - Past Medical History Additional medical history: Esophageal dysmotility with associated dysphagia, history aspiration pneumonia, HTN, history of PE/DVT on Eliquis, history traumatic SAH, valvular heart disease with severe aortic stenosis, CVD, anemia, osteoarthritis, gout, GERD, history of epistaxis - Surgical History Additional surgical history: Bilateral cataract extraction with lens placement, appendectomy, EGD with history of dilation, hernia repair - Family History Additional family history: Mother and father were healthy and lived until their 80s. Patient reports his children are all healthy as well. No known family history of coronary artery disease - Social History Smoking Status: Never smoked Alcohol Use: None Drug Use: None Additional social history: Patient is and lives with his in his home. Cor status is full. Patient's daughters are MD TODD. Review of Systems Review of Systems: ROS: 10pt was reviewed & negative except for what was stated in HPI & below Constitutional: Reports: fever. Denies: chills, malaise EENMT: Denies: nose congestion, sore throat Cardiac: Denies: chest pain, edema, lightheadedness, palpitations Respiratory: Reports: cough, shortness of breath. Denies: orthopnea, wheezing Gastrointestinal: Denies: vomitting, black stools, abdominal pain, diarrhea, nausea Genitourinary: Denies: dysuria, incontinence Skin: Reports: no symptoms Neurological: Reports: no symptoms Hematologic/Lymphatic: Reports: easy bruising Physical Exam Physical Exam: Selected Entries 12/04/17 19:37 Blood Pressure Automatic Method Heart Rate 108 H Respiratory 16 Rate O2 Sat (%) 91 L Temperature (C) 37.7 C Blood Pressure 136/89 H Mean Arterial 104 H Pressure (MAP) O2 Delivery Room Air Mode Temperature Oral Source Temp Pulse Resp BP Pulse Ox 36.9 C 85 16 101/57 L 90 L 12/04/17 23:09 12/04/17 23:09 12/04/17 23:09 12/04/17 23:09 12/04/17 23:09 O2 (L/minute) 2 Constitutional: no apparent distress, chronically ill appearing, cachectic, other (NAD. Pleasant elderly frail-appearing thin gentleman is resting quietly in bed. Awake and interactive. In good spirits.) Eyes: PERRL, anicteric sclera, EOMI, No scleral injection Ears, Nose, Mouth, Throat: moist mucous membranes, no oral mucosal ulcers, other (No nasal discharge), No poor dentition (Dentures in place) Cardiovascular: regular rate and rhythym, systolic murmur (Musical systolic murmur present), pulses symmetric bilaterally, No edema Peripheral Pulses: 1+: dorsalis-pedis (R), dorsalis-pedis (L) Lab Data & Imaging Review 12/04/17 20:20 12/04/17 20:20 WBC 7.38 10^3/uL (3.80-9.50) 12/04/17 20:20 RBC 3.42 10^6/uL (4.40-6.38) L 12/04/17 20:20 Hgb 10.9 g/dL (13.7-17.5) L 12/04/17 20:20 Hct 33.1 % (40.0-51.0) L 12/04/17 20:20 MCV 96.8 fL (81.5-99.8) 12/04/17 20:20 MCH 31.9 pg (27.9-34.1) 12/04/17 20:20 MCHC 32.9 g/dL (32.4-36.7) 12/04/17 20:20 RDW 13.1 % (11.5-15.2) 12/04/17 20:20 Plt Count 144 10^3/uL (150-400) L 12/04/17 20:20 MPV 10.4 fL (8.7-11.7) 12/04/17 20:20 Neut % (Auto) 81.4 % (39.3-74.2) H 12/04/17 20:20 Lymph % (Auto) 13.3 % (15.0-45.0) L 12/04/17 20:20 A[place] % (Auto) 4.2 % (4.5-13.0) L 12/04/17 20:20 Eos % (Auto) 0.5 % (0.6-7.6) L 12/04/17 20:20 Baso % (Auto) 0.3 % (0.3-1.7) 12/04/17 20:20 Nucleat RBC Rel Count 0.0 % (0.0-0.2) 12/04/17 20:20 Absolute Neuts (auto) 6.01 10^3/uL (1.70-6.50) 12/04/17 20:20 Absolute Lymphs (auto) 0.98 10^3/uL (1.00-3.00) L 12/04/17 20:20 Absolute Monos (auto) 0.31 10^3/uL (0.30-0.80) 12/04/17 20:20 Absolute Eos (auto) 0.04 10^3/uL (0.03-0.40) 12/04/17 20:20 Absolute Basos (auto) 0.02 10^3/uL (0.02-0.10) 12/04/17 20:20 Absolute Nucleated RBC 0.00 10^3/uL (0-0.01) 12/04/17 20:20 Immature Gran % 0.3 % (0.0-1.1) 12/04/17 20:20 Immature Gran # 0.02 10^3/uL (0.00-0.10) 12/04/17 20:20 VBG Lactic Acid 1.8 mmol/L (0.7-2.1) 12/04/17 20:20 Sodium 136 mEq/L (135-145) 12/04/17 20:20 Potassium 4.3 mEq/L (3.5-5.2) 12/04/17 20:20 Chloride 100 mEq/L (97-110) 12/04/17 20:20 Carbon Dioxide 27 mEq/l (22-31) 12/04/17 20:20 Anion Gap 9 mEq/L (8-16) 12/04/17 20:20 BUN 23 mg/dL (7-23) 12/04/17 20:20 Creatinine 1.0 mg/dL (0.7-1.3) 12/04/17 20:20 Estimated GFR > 60 12/04/17 20:20 Glucose 122 mg/dL (70-100) H 12/04/17 20:20 Calcium 8.8 mg/dL (8.5-10.4) 12/04/17 20:20 Influenza A,B Rapid NEGATIVE FOR FLU (NEGATIVE) 12/04/17 20:10 Imaging Review: Chest, PA and Lateral History: Fever and cough Comparison: Portable exam July 28, 2017, PA and lateral chest February 22, 2009 Findings: There is new patchy right lower lung infiltrate associated with new blunting of the A vertical scar at the left medial lung base, blunting of the left costophrenic gutter and a right midlung nodule are stable. There may be a hiatal any and behind the heart. There are new moderate T7 and T8 compression abnormalities. A mild T9 compression abnormality is stable since 2008. Impression: 1. Patchy right lower lobe pneumonia 2. New since 2008 and moderate T7 and T8 compressions. This patient might benefit from a DEXA scan. Assessment & Plan Assessment: Aspiration pneumonia (Acute) - patient started on clindamycin prior to arrival. Will plan to continue at this time as patient does continue to have some intermittent fevers. Likely some component of pneumonitis. Patient is without any white count and normal lactate. Blood cultures were drawn prior to arrival. Fever - plan as noted above. Esophageal dysmotility/dysphagia - patient will remain NPO at this time. Speech therapy is consult has been requested. Patient did the requesting home therapy consultation. Vertebral Compression fractures T7-8 - new on imaging since last year. Patient at this time is comfortable denies any back pain specifically. He is without any complaints of paresthesias or focal weakness. Continue with supportive care at this time was patient's symptoms worsen. Chronic medical issues Benign essential hypertension - blood pressure is currently controlled. Patient is no longer on any antihypertensives. History of PE/DVT - continue patient's Eliquis Aortic stenosis severe - noted previously family without any interest in pursuing treatment options. Anemia of chronic disease - stable H&H since July. No evidence of active bleeding will plan to continue monitor. Chronic back pain - continue with supportive care p.r.n. Tylenol [place]. At this time patient events appear comfortable. GERD -resume PPI per formulary or at after discharge if patient prefers. Gout - no evidence of flare. Patient is not on any allopurinol. FEN - gentle IV fluid hydration while patient will be NPO. Monitor fluid status closely given history of severe aortic stenosis. Electrolyte monitoring and replacement p.r.n.. Speech therapy will evaluate the patient and decided upon diet. PPx - SCDs and. Patient is already on Eliquis. Cor-patient code status was reviewed with him at bedside. His family is not available at time of discussion. He does desire to be a full code is able to relate understanding regarding aggressive measures in resuscitation. Will further clarify with patient and his family tomorrow when they are available at bedside. His previous hospital stay in July noted that patient desired to be a DNR. Disposition-patient has been admitted to observation status on the medical floor at this time pending speech therapy evaluation. Anticipate less than 2 midnight stay. I did discuss the potential for earlier discharged sometime tomorrow with patient's daughter Neda. She college understanding.
[2017-12-05] MEDS: CLINDAMYCIN 600 MG/DEXTROSE 50 ML IV SCH ×2 (05:11→16:08)
[2017-12-05 05:35] LABS: PLATELET COUNT 106 10^3/uL (150-400)
--- NOTE | 2017-12-05 14:33 | ASMTCASEMG ---
Living Arrangements What is your living Answers: With Spouse arrangement? Who do you live with? Type Of Residence What kind of residence do Answers: House you live in? Discharge Plan Comments Coordination Status Comments Notes: CM spoke w/ ALVARO Miranda and Dr. Greenfield regarding d/c POC. Ruth had concerns about pts safety re going back to his current living enviornment. OT is recommending HC. PT has been ordered and awaiting recommendations. Needs are TBD at this time. CM to follow. Plan: TBD Date Signed: 12/05/2017 02:32 PM Electronically Signed By:CHRISTY Quiroz
[2017-12-05] MEDS: CITALOPRAM 20 MG TAB PO SCH (16:08)
[2017-12-05] MEDS: IPRATROPIUM/ALBUTEROL 3 ML DEYVIAL IH SCH (20:25)
--- NOTE | 2017-12-05 20:48 | HOSPPROG ---
Hospitalist Progress Note Assessment/Plan: #. Acute Hypoxic Respiratory Failure - Not on oxygen outside of hospital but with desaturations into the low to mid-80's without oxygen. Add scheduled Duoneb nebulizers along with antibiotics and attempt to wean in the next 24 hours. Likely could return home if able to wean. #. PNA - concern for aspiration. With fevers there may be bacterial component. Patient currently on clindamycin. #. Compression fracture - new by imaging. New symptoms. Follow. #. Esophageal Dysmotility - I reviewed the issue with speech therapy today. Also reviewed with family. He has apparently done well when he does not drink liquids 30 minutes before and after consumption of solid foods but started to slide on these recommendations as he had been doing well. I think this hospitalization a reminder that he will need to stick with these recommendations and essentially no change in recommendations from speech therapy and not felt to need repeat video esophogram and likely same results. #. Aortic Stenosis - severe by most recent echocardiogram. Surgery not recommended considering risk. Family appear okay with this recommendation. #. HTN - no changes. #. Hx PE/DVT - continue anticoagulation. #. DVT prophylaxis - patient anticoagulated. #. Dispo - DNAR by documentation from prior admissions. Subjective: No acute events overnights. Patient appears comfortable in chair as bedside. No acute complaints and would like to return home. No subjective SOD. Objective: Vital Signs Temp Pulse Resp BP Pulse Ox 36.5 C 77 16 127/59 H 2 L 12/05/17 20:00 12/05/17 20:00 12/05/17 20:00 12/05/17 20:00 12/05/17 20:00 Laboratory Results 12/05/17 05:15 12/05/17 05:15 12/04/17 12/05/17 12/06/17 05:59 05:59 05:59 Intake Total 265 900 Output Total 300 Balance 265 600 - Physical Exam Constitutional: no apparent distress, appears nourished, not in pain Ears, Nose, Mouth, Throat: moist mucous membranes, hearing normal, ears appear normal, no oral mucosal ulcers Cardiovascular: regular rate and rhythym, no murmur, rub, or gallop Respiratory: other (course right sided sounds. No wheezing.) ICD10 Worksheet Patient Problems: Problems Problem Status Onset Aspiration pneumonia Acute Bilateral edema of lower extremity Acute CHF (congestive heart failure) Acute
--- NOTE | 2017-12-05 21:09 | PDMN ---
Medical Necessity Medical necessity: C/M review: Patient meets INPT crtieria under MCG [id number] Pneumonia due to aspiration: Acute and persistent - hypoxic respiratory failure , low 80's RA sats, pneumonia - concern for aspiration, T7 and T8 compression fractures- new by CXR, requiring ongoing IV Clindamycin Q 8 hrs., Duonebs QID, pulse oximetry, supplemental O2, acute inpt PT/OT/ST, comorbid patient is not on O2 outside of the hospital, esophageal dysmotility, aortic stenosis (severe by most recent echocardiogram, surgery not recommended considering risk), hypertension, history of PE DVT. MD anticipates > 2 MN LOS for ongoing med nec for eval and TX of above. Patient is Medicare Advantage which follows guidelines CMS puts forth.
[2017-12-06] MEDS: IPRATROPIUM/ALBUTEROL 3 ML DEYVIAL IH SCH ×3 (00:12→09:32)
[2017-12-06 05:40] VITALS: RESP 18
[2017-12-06 08:11] VITALS: BP 127/64; TEMP 97.8
[2017-12-06] MEDS ORDERED: PANTOPRAZOLE SODIUM 40 MG TAB PO SCH (09:00)
[2017-12-06] MEDS ORDERED: NON-FORMULARY NEW DRUG (Omeprazole [Omeprazole] 40 MG) PO SCH (09:00)
--- NOTE | 2017-12-06 09:25 | HOSPPROG ---
Hospitalist Progress Note Assessment/Plan: Patient is an 87-year-old gentleman who has a history of longstanding esophageal dysmotility. He also has a history of aspiration pneumonia. He presented to [facility] where he was noted to have a right lower lobe pneumonia consistent with aspiration. Today is my 1st encounter with the patient. Chart reviewed. . #. Acute Hypoxic Respiratory Failure - -will evaluate after lunch today and see how he does on room air #. PNA - concern for aspiration. With fevers there may be bacterial component. Patient currently on clindamycin. #. Compression fracture - new by imaging. New symptoms. Follow. #. Esophageal Dysmotility -has silent aspiration, dysphagia -family is aware, will cont ST recommendations at home #. Aortic Stenosis - severe -family doesn't want any further interventions #. HTN - no changes. #. anemia -lower than his baseline, but could be dilutional -dc fluids -get repeat labs w PCP #. Hx PE/DVT - continue anticoagulation. #. DVT prophylaxis - patient anticoagulated. #. Dispo - today if O2 levels remain stable Subjective: Lewis is feeling well. Objective: Vital Signs Temp Pulse Resp BP Pulse Ox 36.6 C 92 18 127/64 H 91 L 12/06/17 08:00 12/06/17 08:00 12/06/17 08:00 12/06/17 08:00 12/06/17 08:00 12/05/17 12/06/17 12/07/17 05:59 05:59 05:59 Intake Total 900 Balance 900 - Physical Exam Constitutional: no apparent distress, appears nourished, not in pain, chronically ill appearing Eyes: PERRL Ears, Nose, Mouth, Throat: hard of hearing Cardiovascular: regular rate and rhythym, systolic murmur (right sternal and left sternal border) Respiratory: no respiratory distress Skin: warm, normal color Musculoskeletal: generalized weakness Neurologic: AAOx3 Psychiatric: interacting appropriately ICD10 Worksheet Patient Problems: Problems Problem Status Onset Aspiration pneumonia Acute Bilateral edema of lower extremity Acute CHF (congestive heart failure) Acute
[2017-12-06] MEDS: CITALOPRAM 20 MG TAB PO SCH (10:06)
[2017-12-06] MEDS: APIXABAN 5 MG TAB PO SCH ×2 (10:06)
[2017-12-06] MEDS: CLINDAMYCIN 600 MG/DEXTROSE 50 ML IV SCH ×2 (10:28)
--- NOTE | 2017-12-06 11:39 | PDIAF ---
- Diagnosis Diagnosis: aspiration pneumonia - Medication Management Discharge Medications: Medications to Continue on Transfer Citalopram [CeleXA 20 MG] 20 mg PO DAILY 07/28/17 [Last Taken 12/04/17] Multivitamins [Multivitamin (*)] 1 each PO DAILY 07/28/17 [Last Taken 12/04/17] Omeprazole 40 mg PO DAILY 07/28/17 [Last Taken 12/04/17] Apixaban [Eliquis] 5 mg PO BID #60 tab 07/29/17 [Last Taken 12/04/17 21:00] Clindamycin 450 mg PO TID #51 cap 12/06/17 [Last Taken Unknown] Discharge Medications: Refer to the Discharge Home Medication list for PRN reason. PICC Care - Routine: N/A - Orders Services needed: Home Care, Physical Therapy, Occupational Therapy, Speech Language Pathologist Home Care Face to Face: I certify that this patient was under my care and that I had the required [id number] encounter meeting the encounter requirements on the discharge day. My findings support the fact that the patient is homebound as defined in Home Care Face to Face Continued: CMS Chapter 7 Medicare Benefits Manual 30.1.1 , The condition of the patient is such that there exists a normal inability to leave home and consequently, leaving home would require a considerable and taxing effort. Diet Texture: Dysphagia 2 - Mechanically Altered - Chopped, Ground, Dysphagia 1 - Pureed, [place] Thick Liquids, Meds Whole in Puree - Labs/Radiology HCT/HGB Date: 12/12/16 - Follow Up Care Current Providers and Referrals: Chris Villarreal MD [Primary Care Provider] - As per Instructions
[2017-12-06 11:42] VITALS: PULSE 102; O2SAT 95
--- NOTE | 2017-12-06 11:58 | GDS ---
[f rep st] DISCHARGE SUMMARY DISCHARGE DIAGNOSIS: 1. Aspiration pneumonia. 2. Acute hypoxemic respiratory failure. 3. Compression fracture. 4. Esophageal dysmotility. 5. Aortic stenosis, severe. 6. Hypertension. 7. Anemia. 8. History of pulmonary embolus and deep venous thrombosis. BRIEF HISTORY: Briefly, the patient is an 87-year-old gentleman who has a history of longstanding esophageal dysmotility. He has a history of aspiration pneumonia. He presented to [facility] where he was noted to have a right lower lobe pneumonia consistent with aspiration. He was seen and evaluated by Speech Therapy, who made recommendations in regard to his diet. Today, he is back on room air. He is feeling better. Home care, Speech Therapy , and OT will follow up with him. HOSPITAL COURSE: 1. Acute hypoxemic respiratory failure, resolved. He is on room air. 2. Pneumonia. Will continue him on clindamycin. He is allergic to penicillin. 3. Compression fracture. This is new by imaging. Have a followup with his PCP. 4. Esophageal dysmotility. He has silent aspiration as well as dysphagia. The family is well aware of this and Speech Therapy will follow up with him. 5. Aortic stenosis. This is severe. The family does not want any further interventions. 6. Hypertension. Blood pressure is stable. 6. Anemia. He is lower than his baseline and also on Eliquis. Will get repeat labs next week and him follow up with primary care provider. 7. History of PE and DVT. He is on Eliquis. DISCHARGE CONDITION: Stable. Blood pressure is 127/64, heart rate is 92, respiratory rate is 18, O2 saturations on room air are 91% to 95%. MEDICATIONS AT DISCHARGE: Please see the EMR. DISCHARGE INSTRUCTIONS: 1. Take clindamycin as directed. If he develops more than 2 liquidy stools, to follow up with his primary care provider immediately. Reviewed with the patient and his daughter signs of clostridium difficile. 2. Follow up in regards with his new compression fractures. TIME SPENT: Greater than 30 minutes discharging and coordinating care. /[id number]/MODL MTDD
[2017-12-06] MEDS ORDERED: CLINDAMYCIN 600 MG/DEXTROSE 50 ML IV SCH (13:00)
--- NOTE | 2017-12-06 17:36 | ASDISCHSUM ---
Discharge Information Plan Status:Home with Home Health Medically Cleared to Leave:12/06/2017 Discharge Date:12/06/2017 01:28 PM D/C Disposition:Home Health Service ON LICENSE OF [facility] D/C Disposition:Home, Routine, Self-Care Projected Discharge Date:12/07/2017 11:00 AM Transportation at D/C:Family Discharge Delay Reason: Follow-Up Date:12/07/2017 11:00 AM Discharge Slot: Final Diagnosis: Placement Information Referral Type:*Home Health Care Services Referral ID:[id number] Provider Name:[facility] [address] [facility] [address] Address 2: City:[place] Selection Factors: State:[place] Patient Contact Information Contact Name:SCOTTPOOLRicky Relationship: Address:[address] Work Phone: [facility]:[place] Alternate Phone: State/Zip Code:[place] [address] Email: Financial Information Financial Class:Medicare Advantage Plans Primary Plan Desc:[facility] [employer] Primary Plan Number:[id number] Secondary Plan Desc: Secondary Plan Number: Assessment Information LACE LACE Length of stay for Answers: 1 day current admission Acuity / Level of Answers: Yes Care: Did the patient have an inpatient admission? Comorbidities - select Answers: Congestive heart failure all that apply Opioid dependence / Chronic pain Peripheral vascular disease Other Notes: HTN, PE/DVT, GERD # of Emergency department Answers: 1-2 visits in the last 6 months Score: 13 Date Signed: 12/06/2017 05:34 PM Electronically Signed By:SABINE Nguyen [facility] Initial CM Assessment Living Arrangements What is your living Answers: With Spouse arrangement? Who do you live with? Type Of Residence What kind of residence do Answers: House you live in? Discharge Plan Comments Coordination Status Comments Notes: CM spoke douglas/ ALVARO Miranda and Dr. Greenfield regarding d/c POC. Ruth had concerns about pts safety re going back to his current living enviornment. OT is recommending HC. PT has been ordered and awaiting recommendations. Needs are TBD at this time. CM to follow. Plan: TBD Date Signed: 12/05/2017 02:32 PM Electronically Signed By:CHRISTY Quiroz Case Management Discharge Plan Note Case Management Discharge Discharge Order Complete? Answers: Yes Patient to Obtain Answers: via [employer] Transportation Arranged Answers: Family/Friends Faxed Final Orders Answers: Yes Family Notified Answers: Yes Discharge Comments Notes: Pt discharged home today with [facility] PT/OT. Referral sent via [employer] and spoke with ALVARO Callahan information technology analyst. Date Signed: 12/06/2017 05:33 PM Electronically Signed By:ASBINE Nguyen Intervention Information Intervention Type:MALCOM-Signed Date of Service:12/05/2017 02:49 PM Patient Type:Observation Staff Member:Ne Harris Hours: Discipline: Severity: Comment:
== END 2017-12-06 13:28 | disposition home or self-care (01) | DRG 193 ==
LOC: CED 19:21 → CEDHOLD 21:04 → F3N 23:06 → OBSVTOIN 12-05 17:51
PROVIDERS: ADMIT Family Medicine; ATTEND Family Medicine
DX: J18.9 Pneumonia, unspecified organism (principal); J96.01 Acute respiratory failure with hypoxia; M48.54XA Collapsed vertebra, not elsewhere classified, thoracic region, initial encounter for fracture; K22.4 Dyskinesia of esophagus; I70.0 Atherosclerosis of aorta; I10 Essential (primary) hypertension; D64.9 Anemia, unspecified; Z86.711 Personal history of pulmonary embolism; Z86.718 Personal history of other venous thrombosis and embolism; Z88.0 Allergy status to penicillin
CPT/HCPCS: 71046-PO; 80048-PO; 83605-PO; 85025-PO; 87400-PO; 92526-GN; 92610-GN; 96365; 97116-GP; 97161-GP; 97165-GO; G0378; G8978-GP-CI; G8979-GP-CI; G8980-GP-CI; G8987-GO-CJ; G8988-GO-CJ; G8996-GN-CK; G8997-GN-CK; G8998-GN-CK

== ENCOUNTER 2018-02-10 21:13 | Inpatient (IN) | payer OTHER ==
[2018-02-10] MEDS ORDERED: NS 500 ML IV ONE (22:06)
--- NOTE | 2018-02-10 22:19 | EDPHY ---
H & P Stated Complaint: general weakness x 2 days Time Seen by Provider: 02/10/18 22:01 HPI/ROS: HPI The patient presents with generalized weakness for the last 2 days, brought in by ambulance from his home where he lives with his . Last night he began to feel weak and had difficulty walking because of this. He improved during the day today, however tonight became worse and again was unable to walk because his entire body felt weak. He has been noted to be shaking a little bit more than usual and seems more fatigued and tired according to his 2 daughters at the bedside. They report that they noted that his pulse elevated at breathing has been rapid at home. He does have history of esophageal dysmotility with strictures and has had difficulty eating solid foods do chest. Over the last 2 weeks he has not been eating very well, ingesting at times all 500 calories a day. Family is concerned that he has lost weight. Baseline he use a walker. He has not had any falls lately. He does not have a headache , nausea or vomiting. REVIEW OF SYSTEMS Constitutional: No fever, no chills. Eyes: No discharge. ENT: No sore throat. Cardiovascular: No chest pain, no palpitations. Respiratory: No cough, no shortness of breath. Gastrointestinal: No abdominal pain, no vomiting. Genitourinary: No hematuria. Musculoskeletal: No back pain. Skin: No rashes. Neurological: No headache. PMHx: Admission in November of this year for aeration pneumonia, esophageal motility, aortic stenosis and CHF, history of PE on Eliquis Soc Hx: Lives home with his PHYSICAL General Appearance: Alert, tired appearing Eyes: Pupils equal and round no pallor or injection ENT, Mouth: Mucous membranes dry Respiratory: There are no retractions, lungs are clear to auscultation Cardiovascular: Regular rate and rhythm Gastrointestinal: Abdomen is soft and non-tender, no masses, bowel sounds normal Neurological: A&O, moves all extremities Skin: Warm and dry, no rashes Musculoskeletal: Neck is supple non tender Extremities: symmetrical, full range of motion , trace lower extremity edema Psychiatric: Patient is oriented X 3, there is no agitation Source: Patient, Family, EMS, Old records Exam Limitations: No limitations - Medical/Surgical History Hx Asthma: No Hx Chronic Respiratory Disease: Yes Hx Diabetes: No Hx Cardiac Disease: Yes Hx Renal Disease: No Hx Cirrhosis: No Hx Alcoholism: No Hx HIV/AIDS: No Hx Splenectomy or Spleen Trauma: No Other PMH: Hypertension, chronic bronchitis, PE, DVT, traumatic subarachnoid, valvular heart disease, chronic back pain, bilateral cataract surgery, appendectomy, chronic anemia, chronic dysphagia post stricture dilation, GERD, and epistaxis, arthritis, gout. - Social History Smoking Status: Never smoked Constitutional: Initial Vital Signs Temperature (C) 36.7 C 02/10/18 21:20 Heart Rate 95 02/10/18 21:20 Respiratory Rate 20 02/10/18 21:20 Blood Pressure 102/81 H 02/10/18 21:20 O2 Sat (%) 99 02/10/18 21:20 O2 Delivery Mode Nasal Cannula O2 (L/minute) 2 Allergies/Adverse Reactions: ampicillin [Ampicillin] Allergy (Intermediate, Verified 02/11/18 09:31) Hives Penicillins Allergy (Intermediate, Verified 02/11/18 09:31) Hives Home Medications: Medication Instructions Recorded Citalopram [CeleXA 20 MG] 20 mg PO DAILY 07/28/17 Multivitamins [Multivitamin (*)] 1 each PO DAILY 07/28/17 Omeprazole 40 mg PO DAILY 07/28/17 Apixaban [Eliquis] 5 mg PO BID #60 tab 07/29/17 Acetaminophen [Tylenol 325mg (*)] 325 mg PO DAILY PRN 02/11/18 Medical Decision Making - Diagnostics EKG Interpretation: EKG: Complete interpretation has been separately recorded in the [facility] archive. Summary impression: No ST segment changes Imaging Results: Chest x-ray two view shows left-sided pleural effusion, interpreted by me me and the radiologist. Imaging: I viewed and interpreted images myself Differential Diagnosis: 87-year-old male with history of esophageal dysmotility, CHF, aortic stenosis, history of P on Eliquis who presents from home with generalized weakness for the last 2 days in the setting of decreased p.o. Intake due to esophageal difficulties over the last weeks. Differential diagnosis includes dehydration, white disturbance, arrhythmia, ACS , anemia, infection such as UTI or pneumonia. In the emergency department, patient was started on IV fluids. Labs were checked and did reveal significant dehydration with elevated BUN and creatinine. This is suggestive of pre renal azotemia. Chest x-ray does reveal left-sided pleural effusion, unclear if the patient has infiltrate. He does have a cough which is quite chronic related to his esophageal issues. However, given his recent aspiration pneumonia, I will perform blood cultures and treated with antibiotics. The case is discussed with the hospitalist workforce consultant Dr. Cardona who will admit the patient to her service. The patient's troponin was elevated though EKG showed no changes, I feel this is likely due to cardiac strain. - Data Points Laboratory Results: Laboratory Results 02/10/18 21:15 02/10/18 21:15 Medications Given: Apixaban (Eliquis) 2.5 mg PO BID MELINA Stop: 08/10/18 12:29 Last Admin: 02/11/18 21:24 Dose: 2.5 mg Citalopram Hydrobromide (Celexa) 20 mg PO DAILY MELINA Stop: 08/10/18 09:59 Last Admin: 02/11/18 12:31 Dose: 20 mg Sodium Chloride (Ns) 1,000 mls @ 75 mls/hr IV CONT MELINA Stop: 08/10/18 01:29 Last Admin: 02/11/18 15:54 Dose: 1,000 mls Clindamycin Phosphate/Dextrose (Cleocin 600 Mg (Premix)) 50 mls @ 100 mls/hr IV Q8HRS MELINA PRN Reason: Protocol Stop: 03/13/18 06:59 Last Admin: 02/11/18 21:24 Dose: 50 mls Multivitamins (Tab-A-Prince) 1 each PO DAILY MELINA Stop: 08/10/18 09:59 Last Admin: 02/11/18 12:31 Dose: 1 each Pantoprazole Sodium (Protonix) 40 mg PO DAILY MELINA Stop: 08/10/18 09:59 Last Admin: 02/11/18 12:31 Dose: 40 mg Discontinued Medications Apixaban (Eliquis) 5 mg PO BID MELINA Stop: 08/10/18 09:59 Last Admin: 02/11/18 13:12 Dose: Not Given Sodium Chloride (Ns) 500 mls @ 0 mls/hr IV ONCE ONE PRN Reason: Wide Open Stop: 02/10/18 22:07 Last Admin: 02/10/18 22:09 Dose: 500 mls Clindamycin Phosphate/Dextrose (Cleocin 600 Mg (Premix)) 50 mls @ 100 mls/hr IV EDNOW ONE PRN Reason: Protocol Stop: 02/10/18 23:33 Last Admin: 02/10/18 23:43 Dose: 50 mls Departure - Departure Disposition: [facility] Inpatient Acute Clinical Impression: Pleural effusion, Dehydration, Weakness, Acute renal failure Condition: Fair
[2018-02-10] MEDS ORDERED: CLINDAMYCIN 600 MG/DEXTROSE 50 ML IV ONE (23:04)
--- NOTE | 2018-02-10 23:22 | CPEKG ---
Heart Rate: 88 RR Interval: 682 P-R Interval: 207 QRSD Interval: 132 QT Interval: 400 QTC Interval: 484 P [place]: -88 QRS [place]: -67 T Wave [place]: 15 EKG Severity - ABNORMAL ECG - EKG Impression: SINUS RHYTHM EKG Impression: PROBABLE LEFT ATRIAL ABNORMALITY EKG Impression: RBBB AND LAFB EKG Impression: PROLONGED IA INTERVAL Electronically Signed By: Srinivas Lemos 11-Feb-2018 11:47:14
[2018-02-11] MEDS ORDERED: ACETAMINOPHEN 650 MG SUPP PR PRN (01:18)
[2018-02-11] MEDS ORDERED: ONDANSETRON 4 MG/2 ML VIAL IVP PRN (01:18)
[2018-02-11] MEDS: NS 1,000 ML IV SCH ×2 (02:31→15:54)
--- NOTE | 2018-02-11 03:54 | GHP ---
[f rep st] HISTORY AND PHYSICAL DATE OF ADMISSION: 02/10/2018 PRIMARY CARE PHYSICIAN: April Villarreal MD. SOURCE: Patient is able to provide a limited amount of history. He is quite fatigued at this time. EMR was reviewed and case discussed with ED provider. CHIEF COMPLAINT: Generalized weakness. HISTORY OF PRESENT ILLNESS: This is a very pleasant 87-year-old gentleman known to our service with last hospital stay in November of 2017 for aspiration pneumonia, who presents to the emergency departmen t today with his family for progressive generalized weakness. Apparently patient has a known history of esophageal dysmotility and esophageal stricture. He has known aspiration, aspiration risk and re cent admission for pneumonia, who has been residing with family, but over the last several days has h ad progressively declining appetite and oral intake. The patient has subsequently become increasingl y more dehydrated and weaker. When patient was unable to stand with assistance of his walker, family brought him to the emergency department for further evaluation. No known recent fevers, chills. He has been increasingly fatigued. Per ED provider, family had reported the patient had some increased apparent work of breathing at home. There is also concern that patient has had a notable amount of weight loss, in addition to his declining oral intake. The patient without any recent falls. REVIEW OF SYSTEMS: Negative except as noted above. ALLERGIES: Penicillin. HOME MEDICATIONS: As per EMR, not yet verified, omeprazole 40 mg p.o. daily, multivitamin 1 tab p.o. daily, citalopram 20 mg p.o. daily, apixaban 5 mg p.o. twice daily. PAST MEDICAL HISTORY: Significant for esophageal dysmotility, history of esophageal stricture, aspir ation pneumonia, hypertension, chronic bronchitis, use of chronic anticoagulation with Eliquis for hi story of PE, DVT, history of traumatic subdural or subarachnoid hemorrhage, valvular heart disease, c hronic back pain, CVD, GERD, osteoarthritis and gout, history of epistaxis, chronic anemia, severe ao rtic stenosis, CHF. PAST SURGICAL HISTORY: Significant for bilateral cataract extraction with lens reflex, appendectomy, EGD with stricture dilation, hernia repair. FAMILY HISTORY: Mother and father lived into their 80s, were healthy. The patient's children are al so reported to be healthy, per previous EMR notation. SOCIAL HISTORY: Patient is , currently lives with his . The patient's daughter and child joan provide excellent support. CODE STATUS: This was previously full, but will need to verify this with the family in the morning. PHYSICAL EXAMINATION: VITAL SIGNS: Upon arrival to the emergency department, blood pressure 102/81, heart rate 95, respiratory rate 20, O2 saturation 99% on 4 L by nasal cannula, temperature 36.7. Vi tals currently available: Blood pressure 95/63, heart rate 86, respiratory rate 17, O2 saturation 98 % on 2 L by nasal cannula with a temperature 36.7. GENERAL: No acute distress, pleasant, frail thin , elderly gentleman is lying in bed asleep, resting comfortably. He does appear thinner from his pre vious admission in November. HEAD: Normocephalic, atraumatic. EYES: Extraocular muscles are grossly intact. Pupils equal, round, reactive to light bilaterally and symmetric. Lens reflex is appreciate d bilaterally. ENT: Mucous membranes appear quite dry. No oropharyngeal erythema or exudates. NEC K: Supple. Trachea midline. CV: Regular rate and rhythm. No murmurs, rubs, or gallops appreciate d. No chest wall tenderness to palpation. RESPIRATORY: Patient with some increased work of breathi ng while resting. Quite diminished on the left greater than the right. Few crackles bibasilarly. N o wheezes or rhonchi appreciated. ABDOMEN: Positive bowel sounds. Soft, nontender to palpation. N o rebound, guarding, or masses appreciated. : No suprapubic tenderness to palpation. No Diaz ca theter in place. EXTREMITIES: Patient with some trace lower extremity edema on the right side great er than left side. The patient reports that this is normal for his baseline. MUSCULOSKELETAL: Nanci ent with generalized deconditioning, weakness, strength 4/5 in upper and lower extremities bilaterall y and symmetric. Unable to sit up unassisted. NEURO: Grossly nonfocal, no facial drooping. Streng th grossly declined as noted above. The patient awake, alert, and oriented to person, place, time. PSYCH: Patient is not agitated, he is cooperative, pleasant. Limited history secondary to patient's significant fatigue. LABORATORY STUDIES: WBC 12.47, H and H 10.8 and 33.2, MCV 98.2, platelet count 227. Sodium is 138, potassium is 5.7, chloride 100, CO2 21, anion gap is 17, creatinine is 1.8, BUN 75, GF R 36, glucose 102, calcium 8.9, total protein is 7.7, albumin 3.4, total bilirubin is 1.1, ALT is 109 , AST is 162, alkaline phosphatase is 235. Troponin 0.111. UA: Specific gravity 1.021 with a pH of 5.0, 2.0 urobilinogen, otherwise negative. Blood cultures x2 are pending. Chest x-ray: Image and report was reviewed myself, increasing left pleural effusion. Unable to excl ude underlying left lower lobe pneumonia. Compared to chest x-ray July 2017, enlarged effusion. EKG reviewed myself, showing normal sinus rhythm in the 80s with right bundle branch block and left a nterior fascicular block. No acute ST changes. T-wave inversions in the anteroseptal leads. QTc is 454 compared to EKG from July 2017, not significantly changed except for PVCs no longer present. ASSESSMENT AND PLAN: Pleasant 87-year-old gentleman with history of esophageal dysmotility, known as piration, hypertension, anticoagulated for PE, DVT with progressive generalized weakness and decreasi ng oral intake over the last several weeks. 1. Generalized weakness, likely multifactorial, primarily significant dehydration given patient's de clining oral intake. Declining nutritional status. The patient will receive aggressive IV fluid hyd ration, appropriate for his age and history of congestive heart failure. Nutrition consult has been ordered as well as speech therapy. The patient continues to have known aspiration risk and declining oral intake. PT OT consultation in the morning. 2. Acute kidney injury likely prerenal in nature due to dehydration. Patient will receive IV fluids as noted above and plan to repeat a BMP in the morning. 3. Hypoalbuminemia, likely related to patient's declining nutritional status. Dietary consult as no amber above. 4. Hyperkalemia, minimally elevated in setting of severe dehydration and acute kidney injury. Gilberto nue with IV fluids and repeat in the morning. 5. Transaminitis, could be related to significant dehydration. Patient also with mild hypotension, potentially causing some stress on liver and enzymes. The patient without any abdominal complaints. His total bilirubin not significantly elevated. Will plan to repeat LFTs in the morning as well aft er IV fluid hydration. 6. Chronic medical problems. 7. Benign essential hypertension. Blood pressures are slightly low normal at this time. Continue w ith IV fluid hydration and hold any home medications. 8. History of pulmonary embolus, deep vein thrombosis. Continue patient's apixaban. No evidence of active bleeding at this time. 9. Gastroesophageal reflux disease. Resume patient's PPI when tolerating oral intake. 10. Anemia, likely of chronic disease. No evidence of active bleeding as noted above. Monitor CBC in the morning. 11. Chronic bronchitis. At this time patient's symptoms appear stable. Exam is unremarkable. 12. History of valvular heart disease. Monitor fluid status closely. 13. Severe aortic stenosis. Again, monitoring fluid status and patient's clinical condition. 14. Chronic back pain, currently stable. Patient denies any pain. Supportive care. 15. Gout. No evidence of exacerbation and not on allopurinol at this time. 16. Fluid, electrolyte, nutrition. Continue with IV fluid hydration as noted above with normal sali ne. Repeat BMP and electrolytes in the morning. 17. Nutrition. N.p.o., speech therapy and dietary consultation. 18. Prophylaxis. Sequential compression devices. The patient is on Eliquis already. He does have right greater than left edema minimally, but he reports this is normal. We will verify with family i n the morning. 19. Code status was previously full. The patient not able to currently have a comprehensive convers ation regarding advance directives at this time, as he is somnolent and fatigued. Defer to day team for additional discussion with family in the morning. 20. Disposition: Patient has been admitted to observation status on the PCU floor at this time pend ing renal improvement and the patient's strength assessment and abilities. A bed alarm has been plac ed, given patient's increased risk for fall potential and fall risk. /[id number]/MODL
[2018-02-11 04:32] LABS: PLATELET COUNT 186 10^3/uL (150-400)
[2018-02-11 04:53] LABS: CREATINE KINASE 109 IU/L (0-224)
[2018-02-11] MEDS: CLINDAMYCIN 600 MG/DEXTROSE 50 ML IV SCH ×3 (06:59→21:24)
[2018-02-11] MEDS ORDERED: ACETAMINOPHEN 325 MG TAB PO PRN (09:54)
[2018-02-11] MEDS ORDERED: APIXABAN 5 MG TAB PO SCH (10:00)
[2018-02-11] MEDS ORDERED: NON-FORMULARY NEW DRUG (Omeprazole [Omeprazole] 40 MG) PO SCH (10:00)
[2018-02-11] MEDS: MULTIVITAMINS 1 EACH TAB PO SCH (12:31)
[2018-02-11] MEDS: CITALOPRAM 20 MG TAB PO SCH (12:31)
[2018-02-11] MEDS: PANTOPRAZOLE SODIUM 40 MG TAB PO SCH (12:31)
[2018-02-11] MEDS: APIXABAN 2.5 MG TAB PO SCH ×2 (12:59→21:24)
--- NOTE | 2018-02-11 14:02 | ASMTCMCOM ---
CM Note CM Note Notes: 02/11/2018 Case Management Note Discussed pt during rounds this morning with medical team, and daughter. Pt admitted for dehydration, fatigue and malaise. Family reports recent decrease in pt appetite. Pt lives with independently prior to admission. PT OT and SLT have been ordered. Family reports a stricture dilation was previously planned for 03/03/2018. Case Management d/c poc: to be determined. Case Management to follow. Date Signed: 02/11/2018 02:01 PM Electronically Signed By:Kaylan Moore RN
--- NOTE | 2018-02-11 18:22 | HOSPPROG ---
Hospitalist Progress Note Assessment/Plan: I spent today greater than 50 min with this patient at the bedside as well as his family there, reviewing his current medical condition, has past medical issues, his prognosis, and the need for further assessment of his aortic valve. We did reviewed the potential that if he has severe critical aortic stenosis it may not be a treatable condition and we may need to consider palliative options. This time spent with the patient and family was in addition to time spent during admission process today by Dr. Cardona DIAGNOSES: -acute multiorgan injury episode likely due to hypoperfusion of kidneys liver and heart with associated blood test abnormalities from each -acute hypotension (not responding well to hydration so far), suspect combination of intravascular dehydration at aortic stenosis -severe aortic stenosis * The current episode would be suggestive that he may have reached a critical aortic stenosis -acute elevation of cardiac enzymes, associated with CHF, peripheral edema and left-sided pleural effusion -acute renal failure due to hypoperfusion injury -acute liver injury with an elevated transaminases, suspect hypoperfusion injury -suspect some intravascular hypovolemia due to poor fluid intake but with peripheral edema indicating total body hypervolemia -dysphagia with food getting stuck, markedly decreased intake of solid and liquid at home; known prior history of esophageal strictures requiring dilations * Current syndrome may indicate recurrence of esophageal stricture -chronic stable normocytic anemia -severe deconditioning, generalized debilitation, weakness -poor nutritional status with mild cachexia on examination, protein calorie malnutrition I reviewed with the family that this patient has a concerning syndrome the may indicate that he has developed essentially end-stage critical aortic stenosis. Overall he would not be a very good candidate for surgical correction of this, and may not really be a very good candidate for percutaneous intervention. However at this point we should really reassess his aortic valve and cardiac function with feet echocardiogram and I will get Cardiology involved to look at this. I think that he comes in now at this point with dehydration caused potentially by esophageal stricture disease, however if he does have recurrent stricture he may not be a very good candidate to undergo the sedation and risk of bleeding or perforation involved with a dilation procedure. It may be that we should be reviewing the possibility of a palliative approach with the family and patient at this time PLANS: * continue gentle hydration, follow closely for his blood pressures and watch for any signs of volume overload or worsening pleural effusion and respiratory issues from that * Echocardiogram ordered * Cardiology consult * Follow renal function, liver function closely * Fall risk precautions PT and OT evaluations * DVT prophylaxis measures This patient was seen by me during both hospitals rounds today as well as interdisciplinary rounds on the PCU SUBJECTIVE: The patient seems to feel well at rest but he has not gotten out of bed at all today. Declined to work with Physical occupational therapy due to general weakness OBJECTIVE Vitals reviewed: Blood pressures continue to run 95-105 systolic which is decreased notably from the 126-136 range when he was here in November (no increase in blood pressure so far with hydration), otherwise vitals stable without fever Director Phone, my review: Sinus Exam: alert mildly disoriented, some degree of dementia evident, looks relaxed There is generalized cachexia present to a mild degree skin warm dry color ok resps not labored lungs decreased at left base with rales there heart regular abd soft nondistended nontender, bowel sounds present limbs warm, still with edema present iv site ok Laboratory data: Creatinine slightly increased at 1.6, no improvement in liver enzymes so far Troponin remains elevated I reviewed his previous laboratory data and he had liver enzymes back in July 2017 that were normal compared to the elevations noted at this time I reviewed his records from July 2017 as well and had an echocardiogram at that time showing severe aortic stenosis with an elevated gradient Objective: Vital Signs Temp Pulse Resp BP Pulse Ox 36.6 C 86 20 99/69 L 93 02/11/18 15:10 02/11/18 15:10 02/11/18 15:10 02/11/18 15:10 02/11/18 15:10 Laboratory Results 02/11/18 03:51 02/11/18 03:51 02/10/18 02/11/18 02/12/18 06:59 06:59 06:59 Intake Total 2099 1411 Output Total 0 Balance 2099 1411 ICD10 Worksheet Patient Problems: Problems Problem Status Onset Acute renal failure Acute Dehydration Acute Pleural effusion Acute Weakness Acute Aspiration pneumonia Acute Bilateral edema of lower extremity Acute CHF (congestive heart failure) Acute
[2018-02-12 05:01] LABS: PLATELET COUNT 202 10^3/uL (150-400)
[2018-02-12] MEDS: CLINDAMYCIN 600 MG/DEXTROSE 50 ML IV SCH ×3 (05:57→22:05)
[2018-02-12] MEDS: NS 1,000 ML IV SCH ×2 (05:59→19:49)
[2018-02-12] MEDS: MULTIVITAMINS 1 EACH TAB PO SCH (09:02)
[2018-02-12] MEDS: CITALOPRAM 20 MG TAB PO SCH (09:02)
[2018-02-12] MEDS: APIXABAN 2.5 MG TAB PO SCH ×2 (09:03→19:49)
[2018-02-12] MEDS: PANTOPRAZOLE SODIUM 40 MG TAB PO SCH (09:03)
--- NOTE | 2018-02-12 09:21 | PDMN ---
Medical Necessity Medical necessity: Patient meets inpatient criteria per physician note and [facility] [place] De[place] - (ARF: K+ 6.1, Creat 1.8 up to 2.1, BUN 84; hypotension/syst B /P 80's, elevated troponins likely d/t hypoperfusion to multiple organs; LOS > 2 midnights for ongoing gentle IV hydration, evaluation of severe aortic stenosis/likely medical management.)
[2018-02-12] MEDS ORDERED: PERFLUTREN LIPID MICROSPHERES 1.1 MG/ML VIAL IV ONE (11:02)
[2018-02-12] MEDS ORDERED: SODIUM POLY SULF 15 GM/60 ML BOTTLE PO ONE (11:55)
--- NOTE | 2018-02-12 12:30 | ECHO ---
[email or web address] [place] [id number] Main: [phone] Fax: Transthoracic Echocardiogram Name: CATARINO STRICKLAND MR#: [id number] Study Date: 02/12/2018 Study Time: 12:01 PM Date of : 1930 Age: 87 year(s) Height: ( ) Weight: ( ) BSA: Gender: Male Examination: Limited Echo with Definity Indication: Eval EF and R/O thrombus Image Quality: Contrast: Requested by: Catie Cardona BP: / Heart Rate: Rhythm: Indication: Eval EF and R/O thrombus Procedure Staff Cartridge Maker: Ena Richey ROSA Reading Physician: Elida Rodriguez MD Requesting Provider: Conclusions: No LV apical thrombus visualized. EF estimate is 20-25. Measurements: Chambers Valvular Assessment AV/MV Valvular Assessment TV/PV Normal Normal Normal Name Value Range Name Value Range Name Value Range Continued Measurements: Findings: Left Ventricle: No LV apical thrombus visualized. EF estimate is 20-25. Exam Comments: 0.165 of definity was injected to further evaluate LV.. (No Signature Object) Patient: CATARINO STRICKLAND Study Date: 02/12/2018 Page 1 of 1 12:01 PM [id number]
--- NOTE | 2018-02-12 12:30 | ECHO ---
[email or web address] [address] Main: [phone] Fax: Transthoracic Echocardiogram Name: CATARINO STRICKLAND MR#: [id number] Study Date: 02/12/2018 Study Time: 08:14 AM Date of : 1930 Age: 87 year(s) Height: 177.8 cm (70 in.) Weight: 59.42 kg (131 lb.) BSA: 1.74 m2 Gender: Male Examination: Echo Indication: Assess aortic stenosis/severe, which is now becoming symptomatic Image Quality: Contrast: Requested by: Kody Abel BP: 86 mmHg/68 mmHg Heart Rate: Rhythm: Indication: Assess aortic stenosis/severe, which is now becoming symptomatic Procedure Staff Fireboat Operator: Ena Richey RD Reading Physician: Elida Rodriguez MD Requesting Provider: Conclusions: Normal size left ventricle. Severely reduced systolic LV function. The ejection fraction is estimated to be 20-25 %. Grade 2 diastolic dysfunction (pseudonormalized LV filling pattern). Elevated left ventricular filling pressures.. Severe global hypokinesis. Definity contrast confirms there is no LV apical thrombus.. Mildly dilated right ventricle. Mildly to moderately reduced right ventricular function. Mild mitral valve regurgitation is present. Severe calcific aortic valve stenosis. Mild aortic valve regurgitation is present. AV max PG is 51mmHG. AV mean PG is 32mmHG. The dimension less index is .11.. Mild tricuspid regurgitation is present. The pulmonary artery pressure is normal. Compared with 07/28/2017 mean gradient across the aortic valve is slightly lower but this is due to a significant decrement in LV systolic function. Previous LVEF was 56%. Measurements: Chambers Valvular Assessment AV/MV Valvular Assessment TV/PV Normal Normal Normal Name Value Range Name Value Range Name Value Range LVDd (2D): 4.8 cm (4.2 cm-5.9 AV Vmax: 3.57 m/s (1 m/s-1.7 TR Vmax: 2.61 mm/s ( - ) cm) m/s) TR PGmax: 27 mmHg ( - ) LVOTd 1.9 cm 1.9 cm mm AV meanP mmHg ( - ) syst. PAP: 32 mmHg ( - ) LVEF (MOD4): 27 % (>=55 %) IRENE (VTI): 0.3 cm ( - ) EF Range: 20-25 % AR (PHT): 310 ms ( - ) MV E Vmax: 1.24 m/s ( - ) MV A Vmax: 0.37 m/s ( - ) MV E/A: 3.35 ( - ) Patient: CATARINO STRICKLAND Study Date: 02/12/2018 Page 1 of 2 08:14 AM Continued Measurements: Chambers Valvular Assessment AV/MV Valvular Assessment TV/PV Name Value Name Value Name Value LADs: 4.4 cm MV E' Septal: 0.10 m/s CVP (est.): 5 mmHg LADs Lon.4 cm MV E/E' Septal: 12.40 LA Area: 24.0 cm2 MV E/E' Lateral: 40.80 AR Vmax: 3.42 cm/s Additional Vessels Name Value Inferior Vena Cava: 2.7 cm Findings: Left Ventricle: Normal size left ventricle. No LV hypertrophy. Severely reduced systolic LV function. The ejection fraction is estimated to be 20-25 %. Grade 2 diastolic dysfunction (pseudonormalized LV filling pattern). Elevated left ventricular filling pressures.. Severe global hypokinesis. Definity contrast confirms there is no LV apical thrombus.. Right Ventricle: Mildly dilated right ventricle. Mildly to moderately reduced right ventricular function. Left Atrium: The left atrium is mildly dilated. Right Atrium: The right atrium is mildly dilated. Mitral Valve: Moderate mitral valve leaflet calcification is present. Moderate mitral annular calcification. Mild mitral valve regurgitation is present. Aortic Valve: Severe calcific aortic valve stenosis. Mild aortic valve regurgitation is present. AV max PG is 51mmHG. AV mean PG is 32mmHG. The dimension less index is .11.. Tricuspid Valve: The tricuspid valve is normal in appearance and function. Mild tricuspid regurgitation is present. The pulmonary artery pressure is normal. Pulmonic Valve: Pulmonary valve not well visualized. Aorta: The aorta is normal. Pericardium: No pericardial effusion. Left side pleural effusion. Exam Comments: (No Signature Object) Patient: CATARINO STRICKLAND Study Date: 02/12/2018 Page 2 of 2 08:14 AM [id number]
--- NOTE | 2018-02-12 17:23 | GCON ---
[f rep st] CONSULTATION CARDIOLOGY CONSULT. DATE OF CONSULTATION: 02/12/2018 PRIMARY RESAW FEEDER: Dr. Kaiden Colindres. CHIEF COMPLAINT: Heart failure and severe aortic stenosis. HISTORY OF PRESENT ILLNESS: We were asked by Dr. Abel to visit with the patient. The patient is a n 87-year-old male with a history of severe aortic stenosis that was first diagnosed in July 2017 . He has esophageal strictures and dysmotility complicated by aspiration pneumonia, chronic anemia, history of DVT and PE, on Eliquis therapy, systemic hypertension. His family reports that over the past couple of weeks he has been progressively weaker and eating les s. He has been sleeping more during the day. On the evening of February 10, he tried to get up and go to the bathroom with his walker but needed assistance from his . He had several bowel movements th at were not diarrhea. He ultimately became unable to walk, so they called 911. In the emergency department, he was found to be in acute renal failure and had elevated transaminases . His troponin was 0.1. He was admitted for further evaluation and management. An echocardiogram today revealed a significant decline in his ejection fraction compared with echocar diogram in July 2017. Ejection fraction is now 30%. Aortic stenosis is severe. Upon my evaluation, the patient is sleepy, but reports that he is in no pain. He has not had angina or dyspnea. He does endorse mild bilateral lower extremity edema. The patient's family reports that he has been unable to get out of the hospital bed during this admission. ALLERGIES: Ampicillin and penicillin. PAST MEDICAL HISTORY: 1. Severe aortic stenosis. He was evaluated by Dr. Colindres last August, and at that time, the arelis ent declined referral to [facility] for consideration of TAVR. 2. Reflux/esophageal stricture/esophageal dysmotility with history of esophageal dilation. 3. Chronic anemia. 4. DVT/PE. 5. Depression. 6. Hypertension. 7. History of traumatic subarachnoid hemorrhage. PAST SURGICAL HISTORY: Status post appendectomy. OUTPATIENT MEDICATIONS: Tylenol, Eliquis, Celexa, multivitamin, and omeprazole. SOCIAL HISTORY: The patient is , and his is at the bedside. His 2 daughters are involve d in his care. FAMILY HISTORY: Not applicable to the current case. PHYSICAL EXAM: VITAL SIGNS: Blood pressure 103/77, but has been as low as 84/60 earlier this helene reynolds Heart rate is 95, oxygen saturation 92% on room air. Respiratory rate is 18. GENERAL: Frail, e lderly and ill-appearing male. ENT: He is edentulous. Mucous membranes are dry. NECK: JVP is 12- 14 cm of water. CARDIOVASCULAR: Regular rate and rhythm with soft, late-peaking systolic ejection m urmur at the base. LUNGS: Decreased breath sounds at both bases. ABDOMEN: Soft, nontender, nondis tended, without obvious bruits, masses, or hepatosplenomegaly. EXTREMITIES: Warm, well perfused, wi th trace bilateral ankle edema. NEURO: He is somewhat somnolent but does arouse to voice. No gross focal neurological deficits. LABORATORY DATA: White count 9.6, hematocrit 32, and platelets are 202. Sodium 136, potassium 6.1, chloride 106, bicarb 15, BUN 84, creatinine 2.1, AST 647, up from 162 on admission, ALT 427, up from 109, alkaline phosphatase 277. CK is 109 with a positive MB fraction. Peak troponin is 0.1. Albumi n is 3. Echocardiogram reviewed by me and detailed above: Ejection fraction 30%. Severe aortic stenosis. L ikely transaortic gradients are underestimated in the setting of cardiomyopathy. Moderate tricuspid regurgitation with normal estimated pulmonary pressure. Mild RV dilation with mild to moderate RV sy stolic dysfunction. Chest x-ray reviewed by me: Left pleural effusion. EKG reviewed by me: Sinus rhythm. Anterior T-w ave inversions. Right bundle branch block. Left anterior fascicular block. First-degree AV block. 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 He has acute renal failure, as well as evid ence of elevated AST and ALT, which are probably related to hypoperfusion in the setting of his cardi omyopathy and severe aortic sclerosis combined with poor oral intake. He is quite debilitated and, a t this point, nonambulatory. 1. Severe aortic stenosis and new acute systolic heart failure: I explained in detail to the patien janny and his family that his situation is very grave. 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 Si x months ago, he declined evaluation for transcatheter aortic valve replacement, and at this point, bashir hartman is not a candidate for surgical aortic valve replacement or, in my opinion, transcatheter aortic va lve replacement therapy, especially given his underlying renal dysfunction. They agree. They will l michaelely choose a course of palliative care. 2. Systolic heart failure: By laboratory evaluation on exam, he appeared dry upon admission and has received a significant amount of IV fluid resuscitation. He may require Lasix for symptom relief at some point. 3. Acute renal failure: This is likely hypoperfusion and hypovolemia. Creatinine is worsening. Po tassium is also slightly high. Will defer to Internal Medicine whether he needs renal consultation. 4. Elevated AST and ALT: This is also likely hyperperfusion as above. Numbers are worsening. This is certainly a poor prognostic sign. 5. Positive troponin: We have not ruled out coronary disease. He is not a candidate for coronary a ngiogram given his renal failure and other comorbidities. Minimally elevated troponin is likely rela amber to his aortic sclerosis and heart failure. Agree with palliative care consultation if family is amenable. Please call if Cardiology can be of f urther assistance. /[id number]/MODL
--- NOTE | 2018-02-12 17:36 | ASMTCMCOM ---
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 Family has chosen hospice. Notified Yuli on the phone of need for meeting with family in the morning. Faxed referral via [facility] [employer] [facility]. Planning for d/c in the afternoon if [facility] can have equipment delivered to the home. Case Management d/c poc: Home with [facility]. Case Management to follow. Date Signed: 02/12/2018 05:35 PM Electronically Signed By:Kaylan Moore RN
--- NOTE | 2018-02-12 18:14 | HOSPPROG ---
Hospitalist Progress Note Assessment/Plan: DIAGNOSES: -critical aortic stenosis leading to hypotension and multiple organ failure and CHF -probably some dehydration from poor oral intake aggravating his cardiac condition -acute elevation of cardiac enzymes, associated with CHF, peripheral edema and left-sided pleural effusion -acute renal failure due to hypoperfusion injury -acute liver injury with an elevated transaminases, suspect hypoperfusion injury -suspect some intravascular hypovolemia due to poor fluid intake but with peripheral edema indicating total body hypervolemia -dysphagia with food getting stuck, markedly decreased intake of solid and liquid at home; known prior history of esophageal strictures requiring dilations * Current syndrome may indicate recurrence of esophageal stricture -chronic stable normocytic anemia -severe deconditioning, generalized debilitation, weakness -poor nutritional status with mild cachexia on examination, protein calorie malnutrition Overall his blood pressures remain poor overnight despite continuing hydration. I did give him a bolus of IV fluids and this did transiently bring his pressure up better but at this point he has worsening peripheral edema and on my lung exam probably worsening pleural effusion. I reviewed his echocardiogram findings with Dr. Elida Rodriguez which show a dramatic decrease in his ejection fraction from July until now with critical aortic stenosis. At this point looking at the patient's picture overall he is in a very critical spot but he is a poor candidate for surgery or TAVR. His risks will be high and potential benefit fairly limited. It seems best that palliative care would be considered. We have approach the family with this and I reviewed with our special education case manager well. PLANS: * Continue IV hydration for the moment * Echocardiogram ordered * Palliative care consultation has been requested * Will transition to a palliative care program in terms of orders at this time This patient was seen by me during both hospitals rounds today as well as interdisciplinary rounds on the PCU I have reviewed the patient's situation in great detail with Dr. Elida oRdriguez on 2 occasions today SUBJECTIVE: The patient remains very somnolent sleeping through most of the night but remains very arousable. As I arouse him he repeatedly tells me that he feels well without any uncomfortable symptoms at all. 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, my review: Sinus Exam: alert mildly disoriented, some degree of dementia evident, looks relaxed There is generalized cachexia present to a mild degree skin warm dry color ok resps not labored lungs decreased at left base with rales there heart regular abd soft nondistended nontender, bowel sounds present limbs warm, still with edema present iv site ok Laboratory data: Notably his creatinine is higher greater than 2 today, liver enzymes are significantly further elevated greater than 400, electrolytes show rising potassium greater than 6 Objective: Vital Signs Temp Pulse Resp BP Pulse Ox 36.8 C 95 18 103/77 92 02/12/18 12:00 02/12/18 15:10 02/12/18 15:10 02/12/18 15:10 02/12/18 15:10 Laboratory Results 02/12/18 04:37 02/12/18 04:37 02/11/18 02/12/18 02/13/18 06:59 06:59 06:59 Intake Total 2100 2586 Output Total 0 Balance 2100 2586 - Time Spent With Patient Time Spent with Patient: greater than 35 minutes Time Spent with Patient: Greater than 35 minutes spent on this patients care, greater than 50% of time spent counseling, educating, and coordinating care regarding the above mentioned plan. ICD10 Worksheet Patient Problems: Problems Problem Status Onset Acute renal failure Acute Dehydration Acute Pleural effusion Acute Weakness Acute Aspiration pneumonia Acute Bilateral edema of lower extremity Acute CHF (congestive heart failure) Acute
--- NOTE | 2018-02-12 18:17 | HOSPPROG ---
Hospitalist Progress Note Assessment/Plan: FAMILY CARE CONFERENCE I SPENT APPROXIMATELY 40 MIN WITH THE PATIENT'S FAMILY AT THE BEDSIDE INCLUDING HIS AND 2 DAUGHTERS TODAY, IN ADDITION TO MY PREVIOUSLY DOCUMENTED VISITS. THIS WAS A VISIT TO REVIEW THE PATIENT'S MEDICAL CONDITION, PROGNOSIS, TREATMENT OPTIONS AND FURTHER PLANS. We reviewed that he is and severely compromise status with a failing organs and no real good way to improve his scenario overall. His risk for either surgery or TAVR would be fairly high with limited improvement or chance of long-lasting quality of life. Neither Dr. Rodriguez nor I are recommending these approaches and the family understands this and agree that he would be best served by avoiding these procedures. This leaves us really with only the option of a palliative care approach. After reviewing the palliative care philosophies,, what hospice services involve, and other issues the family is now requesting I consultation with hospice service and would like to trying get the patient home with hospice care. I did answer many questions related to which therapies would make sense were not make sense including questions that they had about IV hydration and somewhere approaches. Objective: Vital Signs Temp Pulse Resp BP Pulse Ox 36.8 C 95 18 103/77 92 02/12/18 12:00 02/12/18 15:10 02/12/18 15:10 02/12/18 15:10 02/12/18 15:10 Laboratory Results 02/12/18 04:37 02/12/18 04:37 02/11/18 02/12/18 02/13/18 06:59 06:59 06:59 Intake Total 2100 2586 Output Total 0 Balance 2099 2586 ICD10 Worksheet Patient Problems: Problems Problem Status Onset Acute renal failure Acute Dehydration Acute Pleural effusion Acute Weakness Acute Aspiration pneumonia Acute Bilateral edema of lower extremity Acute CHF (congestive heart failure) Acute
[2018-02-13] MEDS: CLINDAMYCIN 600 MG/DEXTROSE 50 ML IV SCH (05:09)
[2018-02-13 05:30] VITALS: BP 113/88
[2018-02-13] MEDS: NS 1,000 ML IV SCH (08:22)
[2018-02-13] MEDS: MULTIVITAMINS 1 EACH TAB PO SCH (08:27)
[2018-02-13] MEDS: APIXABAN 2.5 MG TAB PO SCH (08:29)
[2018-02-13] MEDS: PANTOPRAZOLE SODIUM 40 MG TAB PO SCH (08:30)
[2018-02-13] MEDS: CITALOPRAM 20 MG TAB PO SCH (08:31)
[2018-02-13] MEDS: IPRATROPIUM/ALBUTEROL 3 ML DEYVIAL IH SCH ×2 (08:53→09:06)
[2018-02-13] MEDS ORDERED: SCOPOLAMINE HYDROBROMIDE 1 MG/3 DAYS PATCH TD ONE (09:45)
--- NOTE | 2018-02-13 10:49 | ASMTCMCOM ---
CM Note CM Note Notes: Yuli from [facility] arrived this am to help with patient's hospice needs, Patient prior to discharge. Emotional support to family from [facility]. The patient has chosen [facility] in [place].. CM available to assist with needs. Date Signed: 02/13/2018 10:48 AM Electronically Signed By:Naomi Aviles RN
--- NOTE | 2018-02-13 11:26 | GDS ---
[f rep st] DISCHARGE SUMMARY DATE OF : 02/13/2018. ALL DIAGNOSES: 1. Critical aortic stenosis. 2. Systolic congestive heart failure. 3. Acute renal failure. 4. Acute liver injury. 5. Suspected dehydration. 6. Chronic anemia. 7. Cachexia. HOSPITAL COURSE: An 87-year-old man admitted with significant generalized weakness. This is likely due to critical aortic stenosis causing LV failure. Evaluated by Cardiology, who considered a TAVR a s an option; however, family preferred to follow a palliative course. Hospice was consulted, and whe brittani I initially saw him this morning, plan was to go home with general inpatient hospice at home. We p laced a scopolamine patch for comfort given his secretions. He appeared to be having agonal respirat ions at that time. I had also completed a MOLST form with his . Clearly, they preferred him to be [id number]. I was recalled to his room after he had , and I noted him to have no responses, no cardiac or pulmonary sounds and no respirations. Time of was 10:15 this rachel correia. Family was present at this time. BILLING: I spent more than 30 minutes on the day of discharge coordinating care. Copy requested to: Dr. Phil Colindres /[id number]/MODL
== END 2018-02-13 10:15 | disposition expired | DRG 307 ==
LOC: EDUNIT# → OBSVTOIN 22:59 → F2W 02-11 00:35
PROVIDERS: ADMIT Family Medicine; ATTEND Family Medicine
DX: I35.0 Nonrheumatic aortic (valve) stenosis (principal); I50.20 Unspecified systolic (congestive) heart failure; N17.9 Acute kidney failure, unspecified; E86.0 Dehydration; E87.5 Hyperkalemia; R64 Cachexia; I11.0 Hypertensive heart disease with heart failure; K21.9 Gastro-esophageal reflux disease without esophagitis; M10.9 Gout, unspecified; D64.9 Anemia, unspecified; R74.0 Nonspecific elevation of levels of transaminase and lactic acid dehydrogenase [LDH]; Z87.01 Personal history of pneumonia (recurrent); Z86.73 Personal history of transient ischemic attack (TIA), and cerebral infarction without residual deficits; Z79.01 Long term (current) use of anticoagulants; Z86.718 Personal history of other venous thrombosis and embolism; Z86.711 Personal history of pulmonary embolism
CPT/HCPCS: 92526-GN; 92610-GN; 97116-GP; 97162-GP; 97165-GO; 97530-GP; C8924; G0378; G8978-GP-CL; G8979-GP-CJ; G8987-GO-CL; G8988-GO-CJ; G8989-GO-CL; G8996-GN-CJ; G8997-GN-CI; Q9957